=== PATIENT | male | born 1940 | race Caucasian/White ===

== ENCOUNTER 2019-07-27 17:42 | Inpatient (IN) | payer MEDICARE, OTHER ==
[2019-07-27] MEDS ORDERED: Sodium Chloride 0.9% 10 ML Syringe FLUSH PRN (18:10)
--- NOTE | 2019-07-27 19:22 | CT ---
Head CT Technique: Multiple axial sections through the brain were obtained. Intravenous contrast was not utilized. Comparison: No prior intracranial imaging is available. Findings: Ventricles along with basal cisterns and sulci over the convexities are moderately prominent. Minimal diminished density is noted within the periventricular white matter which is compatible with small vessel ischemic demyelination change. No other abnormal parenchymal densities are otherwise seen. No midline shift or mass effect is seen. No intracranial hemorrhage is identified. Bone window settings were reviewed. No acute paranasal sinus finding is seen within the visualized sinuses. Visualized mastoid sinuses show nothing acute. No acute calvarial abnormality is appreciated. Impression: 1. Senescent change as noted above. 2. No acute intracranial abnormality is identified. Diagnostic code #2 Study was dictated in [place] Standard Time
--- NOTE | 2019-07-27 19:50 | EDM.PDOC ---
ED HPI GENERAL MEDICAL PROBLEM - General Chief Complaint: Cardiovascular Problem Stated Complaint: WEAKNESS Time Seen by Provider: 07/27/19 18:01 Source of Information: Reports: Patient, Family History Limitations: Reports: No Limitations - History of Present Illness INITIAL COMMENTS - FREE TEXT/NARRATIVE: The patient presents with generalized weakness and confusion. He was diagnosed with Alzheimer's in November. He has been more weak over the past couple weeks. Today was much worse. He sat down and could not get up. He has no headache, chest pain, fever, chills, cough, shortness of breath, abdominal pain, nausea or vomiting. He has no dysuria. He has been eating and drinking okay. He has no numbness. He has been a little more confused lately. 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 He has not had any stents since then. He has a history of hypertension. He does not smoke. Onset: Gradual Duration: Week(s): Severity: Moderate Improves with: Reports: None Worsens with: Reports: None Associated Symptoms: Reports: No Other Symptoms - Related Data Allergies Allergy/AdvReac Type Severity Reaction Status Date / Time No Known Allergies Allergy Verified 07/27/19 17:57 Home Meds: Home Meds Atenolol [Tenormin] 50 mg PO BEDTIME 07/27/19 [History] Insulin Degludec [Tresiba] 30 unit SQ DAILY 07/27/19 [History] Lisinopril [Zestril] 40 mg PO DAILY 07/27/19 [History] Sertraline [Zoloft] 50 mg PO DAILY 07/27/19 [History] atorvaSTATin [Lipitor] 20 mg PO BEDTIME 07/27/19 [History] glipiZIDE [Glucotrol] 5 mg PO BID 07/27/19 [History] hydroCHLOROthiazide [Hydrochlorothiazide] 25 mg PO DAILY 07/27/19 [History] metFORMIN HCl [Glucophage] 1,000 mg PO BID 07/27/19 [History] Past Medical History Cardiovascular History: Reports: Bypass, Hypertension Gastrointestinal History: Reports: GERD Genitourinary History: Reports: Renal Calculus Neurological History: Reports: Alzheimers Disease Psychiatric History: Reports: Dementia Endocrine/Metabolic History: Reports: Diabetes, Type II Dermatologic History: Reports: Urticaria - Past Surgical History Other Musculoskeletal Surgeries/Procedures:: back sx for herniated disc Social & Family History - Family History Family Medical History: Noncontributory - Tobacco Use Smoking Status *Q: Never Smoker Second Hand Smoke Exposure: No - Caffeine Use Caffeine Use: Reports: Coffee - Recreational Drug Use Recreational Drug Use: No ED ROS GENERAL - Review of Systems Review Of Systems: See Below Constitutional: Reports: Weakness HEENT: Reports: No Symptoms Respiratory: Reports: No Symptoms Cardiovascular: Reports: No Symptoms Endocrine: Reports: No Symptoms GI/Abdominal: Reports: No Symptoms : Reports: No Symptoms Musculoskeletal: Reports: No Symptoms Skin: Reports: No Symptoms Neurological: Reports: Weakness ED EXAM, GENERAL - Physical Exam Exam: See Below Exam Limited By: No Limitations General Appearance: Alert, No Apparent Distress Ears: Normal External Exam Nose: Normal Inspection Head: Atraumatic, Normocephalic Neck: Normal Inspection, Supple, Non-Tender Respiratory/Chest: No Respiratory Distress, Lungs Clear, Normal Breath Sounds Cardiovascular: Regular Rate, Rhythm, No Edema, No Murmur GI/Abdominal: Soft, Non-Tender, No Organomegaly, No Mass Back Exam: Normal Inspection Extremities: Normal Inspection Neurological: Alert, Oriented, No Motor/Sensory Deficits EKG INTERPRETATION EKG Date: 07/27/19 Time: 17:56 Rhythm: NSR Rate (Beats/Min): 64 [place]: Normal P-Wave: Present QRS: Normal ST-T: Depressed (ST depression globaly) QT: Normal ND/PQ Interval: 2nd degree AV block, Mobitz II Course - Vital Signs Last Recorded V/S: Last Vital Signs Temp 97.4 F 07/27/19 17:52 Pulse 64 07/27/19 17:52 Resp 20 07/27/19 17:52 BP 143/111 H 07/27/19 17:52 Pulse Ox 94 L 07/27/19 17:52 - Orders/Labs/Meds Orders: Active Orders 24 hr Category Date Time Status Cardiac Monitoring [RC] . DIRECTED Care 07/27/19 18:10 Active EKG Documentation Completion [RC] STAT Care 07/27/19 18:11 Active Peripheral IV Care [RC] . DIRECTED Care 07/27/19 18:11 Active Chest 1V Frontal [CR] Stat Exams 07/27/19 18:11 Taken CALCIUM, IONIZED, SERUM [REF] Stat Lab 07/27/19 20:36 Ordered MAGNESIUM [CHEM] Stat Lab 07/27/19 20:37 Ordered UA W/MICROSCOPIC [URIN] Stat Lab 07/27/19 18:10 Ordered Sodium Chloride 0.9% [Saline Flush] Med 07/27/19 18:10 Active 10 ml FLUSH ASDIRECTED PRN Peripheral IV Insertion Adult [OM.PC] Stat Oth 07/27/19 18:10 Ordered Medication Orders Sodium Chloride (Saline Flush) 10 ml FLUSH ASDIRECTED PRN PRN Reason: Keep Vein Open Last Admin: 07/27/19 18:19 Dose: 10 ml Labs: Laboratory Tests 07/27/19 07/27/19 07/27/19 Range/Units 18:24 18:24 18:24 WBC 5.11 (4.23-9.07) K/mm3 RBC 4.27 L (4.63-6.08) M/mm3 Hgb 12.7 L (13.7-17.5) gm/dl Hct 38.7 L (40.1-51.0) % MCV 90.6 (79.0-92.2) fl MCH 29.7 (25.7-32.2) pg MCHC 32.8 (32.2-35.5) g/dl RDW Std Deviation 41.4 (35.1-43.9) fL Plt Count 159 L (163-337) K/mm3 MPV 9.4 (9.4-12.3) fl Neut % (Auto) 57.8 (34.0-67.9) % Lymph % (Auto) 22.9 (21.8-53.1) % Long % (Auto) 11.5 (5.3-12.2) % Eos % (Auto) 7.4 H (0.8-7.0) Baso % (Auto) 0.4 (0.1-1.2) % Neut # (Auto) 2.95 (1.78-5.38) K/mm3 Lymph # (Auto) 1.17 L (1.32-3.57) K/mm3 Long # (Auto) 0.59 (0.30-0.82) K/mm3 Eos # (Auto) 0.38 (0.04-0.54) K/mm3 Baso # (Auto) 0.02 (0.01-0.08) K/mm3 ESR 14 (0-15) mm/hr Sodium 142 (136-145) mEq/L Potassium 3.7 (3.5-5.1) mEq/L Chloride 103 (98-107) mEq/L Carbon Dioxide 29 (21-32) mEq/L Anion Gap 13.7 (5-15) BUN 17 (7-18) mg/dL Creatinine 1.1 (0.7-1.3) mg/dL Est Cr Clr Drug Dosing 59.77 mL/min Estimated GFR (MDRD) > 60 (>60) mL/min BUN/Creatinine Ratio 15.5 (14-18) Glucose 240 H (83-115) mg/dL Calcium 8.9 (8.5-10.1) mg/dL Total Bilirubin 0.5 (0.2-1.0) mg/dL AST 17 (15-37) U/L ALT 25 (16-63) U/L Alkaline Phosphatase 93 (46-116) U/L Troponin I 0.019 (0.00-0.056) ng/mL C-Reactive Protein 0.5 (<1.0) mg/dL Total Protein 6.3 L (6.4-8.2) g/dl Albumin 3.3 L (3.4-5.0) g/dl Globulin 3.0 gm/dL Albumin/Globulin Ratio 1.1 (1-2) Meds: Medications Generic Name Dose Route Start Last Admin Trade Name Freq PRN Reason Stop Dose Admin Sodium Chloride 10 ml 07/27/19 18:10 07/27/19 18:19 Saline Flush FLUSH 10 ml ASDIRECTED PRN Administration Keep Vein Open Discontinued Medications Generic Name Dose Route Start Last Admin Trade Name Freq PRN Reason Stop Dose Admin Hydralazine HCl 10 mg 07/27/19 20:17 07/27/19 20:25 Apresoline IVPUSH 07/27/19 20:18 10 mg ONETIME ONE Administration Labetalol HCl 20 mg 07/27/19 20:10 Normodyne IVPUSH 07/27/19 20:11 ONETIME ONE Protocol - Re-Assessments/Exams Free Text/Narrative Re-Assessment/Exam: 07/27/19 19:53 I ordered an IV saline lock, EKG, CXR, CT of his head and labs. His EKG shows a second degree HB type II. His CXR shows cardiomegaly. His CT shows senescent change as noted above. No acute intracranial abnormality is identified. His CBC looks good. his glucose is 240. His troponin is negative. His CRP is negative. 07/27/19 20:26 Catia sent an EKG and it shows the ST depression and 1st degree HB but not the second degree HB. I called Dr Boyle and she recommends I talk with cardiology. I have called [facility] in [place]. 07/27/19 20:[address] De La Rosa and he would take the patient there to assess for possible pacemaker but they do not have beds. They asked if we could admit here and transfer in the morning. Dr Boyle was okay with keeping him tonight. Departure - Departure Time of Disposition: 20:40 Disposition: Admitted As Inpatient 65 Condition: Fair Clinical Impression: Second degree AV block, Mobitz type II, Generalized weakness, Confusion Hypertension Qualifiers: Hypertension type: essential hypertension Qualified Code(s): I10 - Essential ( primary) hypertension Referrals: PCP,None [Primary Care Provider] - Forms: ED Department Discharge Sepsis Event Note - Evaluation Sepsis Screening Result: No Definite Risk - Focused Exam Vital Signs: Vital Signs Temp Pulse Resp BP Pulse Ox 07/27/19 17:52 97.4 F 64 20 143/111 H 94 L Date Exam was Performed: 07/27/19 Time Exam was Performed: 20:37 - My Orders Last 24 Hours: My Active Orders 07/27/19 18:10 Cardiac Monitoring [RC] . DIRECTED UA W/MICROSCOPIC [URIN] Stat Sodium Chloride 0.9% [Saline Flush] 10 ml FLUSH ASDIRECTED PRN Peripheral IV Insertion Adult [OM.PC] Stat 07/27/19 18:11 EKG Documentation Completion [RC] STAT Peripheral IV Care [RC] . DIRECTED Chest 1V Frontal [CR] Stat 07/27/19 20:36 CALCIUM, IONIZED, SERUM [REF] Stat 07/27/19 20:37 MAGNESIUM [CHEM] Stat - Assessment/Plan Last 24 Hours: My Active Orders 07/27/19 18:10 Cardiac Monitoring [RC] . DIRECTED UA W/MICROSCOPIC [URIN] Stat Sodium Chloride 0.9% [Saline Flush] 10 ml FLUSH ASDIRECTED PRN Peripheral IV Insertion Adult [OM.PC] Stat 07/27/19 18:11 EKG Documentation Completion [RC] STAT Peripheral IV Care [RC] . DIRECTED Chest 1V Frontal [CR] Stat 07/27/19 20:36 CALCIUM, IONIZED, SERUM [REF] Stat 07/27/19 20:37 MAGNESIUM [CHEM] Stat
[2019-07-27] MEDS ORDERED: Labetalol 100 MG/20 ML MDV IVPUSH ONE (20:10)
[2019-07-27] MEDS ORDERED: hydrALAZINE 20 MG/ML SDV IVPUSH ONE (20:17)
[2019-07-27] MEDS ORDERED: Atropine 0.1 MG/ML 10 ML Syringe IVPUSH PRN (23:31)
--- NOTE | 2019-07-28 07:43 | CR ---
Chest: Portable view of the chest was obtained. Comparison: No prior chest imaging. Heart size and mediastinum are within normal limits. Previous sternotomy is noted. Lungs are clear with no acute parenchymal change. Healing rib fracture felt to be present within the posterior left 7th rib. Impression: 1. Healing rib fracture within the posterior left 7th rib. 2. Nothing acute is otherwise seen on portable chest x-ray. Diagnostic code #2 This report was dictated in [place] Standard Time
[2019-07-28] MEDS ORDERED: hydrALAZINE 20 MG/ML SDV IVPUSH ONE (08:15)
[2019-07-28] MEDS ORDERED: hydrALAZINE 20 MG/ML SDV IVPUSH PRN (08:36)
[2019-07-28] MEDS ORDERED: Hydrochlorothiazide 25 MG Tab PO SCH (09:00)
[2019-07-28] MEDS ORDERED: Lisinopril 20 MG Tab PO SCH (09:00)
[2019-07-28] MEDS ORDERED: Sertraline 50 MG Tab PO SCH (09:00)
[2019-07-28] MEDS ORDERED: Magnesium Sulfate/Water 2 GM in Premix Bag 1 BAG IV STA (09:00)
--- NOTE | 2019-07-28 09:22 | PCM.HP.2 ---
H&P History of Present Illness - General Date of Service: 07/28/19 Admit Problem/Dx: Admission Diagnosis/Problem Admission Diagnosis/Problem Bradycardia - History of Present Illness Initial Comments - Free Text/Narative: This is a 78-year old male with past medical history of poorly controlled hypertension, diabetes and recently diagnosed Alzheimer's who is brought to the ED by for worsening confusion and weakness. As per patient's patient has been having increasing weakness to the point that yesterday he was unable to get up from a sitting position for which she decided to bring him in. During this time he continued to eat ok, no complaints of any other symptoms by patient as per . - Related Data Allergies/Adverse Reactions: Allergies Allergy/AdvReac Type Severity Reaction Status Date / Time No Known Allergies Allergy Verified 07/27/19 17:57 Home Medications: Home Meds Atenolol [Tenormin] 50 mg PO BEDTIME 07/27/19 [History] Insulin Degludec [Tresiba] 30 unit SQ DAILY 07/27/19 [History] Lisinopril [Zestril] 40 mg PO DAILY 07/27/19 [History] Sertraline [Zoloft] 50 mg PO DAILY 07/27/19 [History] atorvaSTATin [Lipitor] 20 mg PO BEDTIME 07/27/19 [History] glipiZIDE [Glucotrol] 5 mg PO BID 07/27/19 [History] hydroCHLOROthiazide [Hydrochlorothiazide] 25 mg PO DAILY 07/27/19 [History] metFORMIN HCl [Glucophage] 1,000 mg PO BID 07/27/19 [History] Past Medical History Cardiovascular History: Reports: Bypass, Hypertension Other Cardiovascular History: x3 1982 Gastrointestinal History: Reports: GERD Genitourinary History: Reports: Renal Calculus Neurological History: Reports: Alzheimers Disease Psychiatric History: Reports: Dementia Endocrine/Metabolic History: Reports: Diabetes, Type II Dermatologic History: Reports: Urticaria - Past Surgical History Other Musculoskeletal Surgeries/Procedures:: back sx for herniated disc Social & Family History - Family History Family Medical History: Noncontributory - Tobacco Use Smoking Status *Q: Former Smoker Used Tobacco, but Quit: Yes Month/Year Tobacco Last Used: 1999 Second Hand Smoke Exposure: No - Caffeine Use Caffeine Use: Reports: Coffee - Recreational Drug Use Recreational Drug Use: No H&P Review of Systems - Review of Systems: Review Of Systems: Unable To Obtain Reason Not Obtained: patient has altered mental status Exam - Exam Exam: See Below - Vital Signs Vital Signs: Last Vital Signs Temp 97.7 F 07/28/19 08:00 Pulse 64 07/27/19 17:52 Resp 24 H 07/28/19 08:00 BP 165/80 H 07/28/19 08:58 Pulse Ox 97 07/28/19 08:00 Weight: 111.039 kg - Exam General: Alert, Cooperative, Other (following one step commands). No: Oriented , Mild Distress HEENT: Conjunctiva Clear, Mucosa Moist & [place] Neck: Supple, +2 Carotid Pulse wo Bruit. No: Lymphadenopathy Lungs: Clear to Auscultation, Normal Respiratory Effort. No: Crackles, Rales, Rhonchi, Wheezing Cardiovascular: Regular Rate, Regular Rhythm. No: Systolic Murmur, Diastolic Murmur, Rubs, Gallop/S3, Gallop/S4 GI/Abdominal Exam: Normal Bowel Sounds, Soft, Non-Tender. No: Distended, Guarding, Rigid, Rebound Back Exam: Normal Inspection Extremities: Normal Inspection, Normal Range of Motion, Non-Tender, No Pedal Edema Neuro Extensive - Mental Status: Disorientation to Place, Disorientation to Time Psychiatric: Alert - Patient Data Result Diagrams: 07/27/19 18:24 07/27/19 18:24 Sepsis Event Note - Evaluation Sepsis Screening Result: No Definite Risk - Focused Exam Vital Signs: Vital Signs Temp Resp BP BP Pulse Ox 07/28/19 08:58 165/80 H 07/28/19 08:00 97.7 F 24 H 181/119 H 97 07/28/19 04:00 98.6 F 18 176/87 H 99 07/28/19 00:00 98.2 F 20 169/63 H 97 07/27/19 22:00 98.4 F 18 176/84 H 99 Date Exam was Performed: 07/28/19 Time Exam was Performed: 09:31 - Problem List (1) Second degree AV block, Mobitz type II SNOMED Code(s): 25190407 ICD Code: I44.1 - ATRIOVENTRICULAR BLOCK, SECOND DEGREE Status: Acute Current Visit: No (2) Generalized weakness SNOMED Code(s): 45679447 ICD Code: R53.1 - WEAKNESS Status: Acute Current Visit: No (3) Confusion SNOMED Code(s): 815971756 ICD Code: R41.0 - DISORIENTATION, UNSPECIFIED Status: Acute Current Visit : No (4) Hypomagnesemia SNOMED Code(s): 128926745 ICD Code: E83.42 - HYPOMAGNESEMIA Status: Acute Current Visit: Yes (5) Diabetes mellitus SNOMED Code(s): 18460286 ICD Code: E11.9 - TYPE 2 DIABETES MELLITUS WITHOUT COMPLICATIONS Status: Acute Current Visit: Yes (6) Hypertension SNOMED Code(s): 52310254 ICD Code: I10 - ESSENTIAL (PRIMARY) HYPERTENSION Status: Acute Current Visit: No Qualifiers: Hypertension type: essential hypertension Qualified Code(s): I10 - Essential (primary) hypertension (7) Alzheimer disease SNOMED Code(s): 33221684 ICD Code: G30.9 - ALZHEIMER'S DISEASE, UNSPECIFIED; F02.80 - DEMENTIA IN OTH DISEASES CLASSD ELSWHR W/O BEHAVRL DISTURB Status: Acute Current Visit: Yes Problem List Initiated/Reviewed/Updated: Yes Assessment/Plan Comment:: Second degree AV block, Mobitz type II HR 64 on admission Trended down to 50 in ED EKG on admission with new onset Mobitz type II PLAN - Admitted due to poor bed availability in [place] - Bed available today - Transfer to [place] with cardiac monitoring en route for EP study Diabetes mellitus, unknown HbA1c Glucose on admission 260 Home management with glipizide, metformin and degludec PLAN - Accuchecks TID AC and HS - Hypoglycemia protocol Hypertension BP on admission 143/111 Continued to trend upwards overnight Suboptimal response to hydralazine Home management with hydrochlorothiazide, lisinopril and atenolol PLAN - PRN hydralazine - Continue to hold atenolol due to block CODE STATUS: FULL CODE PROPHYLAXIS DVT- SCDs GI- not indicated DISPOSITION: Patient evaluated in ED with consult to cardiology in [place], no available bed so hand spray operator requested overnight admission for bed availability. Transfer today. - Mortality Measure Prognosis:: Good
--- NOTE | 2019-07-28 09:40 | PCM.DCSUM1 ---
Discharge Summary - Hospital Course HPI Initial Comments: This is a 78-year old male with past medical history of poorly controlled hypertension, diabetes and recently diagnosed Alzheimer's who is brought to the ED by for worsening confusion and weakness. As per patient's patient has been having increasing weakness to the point that yesterday he was unable to get up from a sitting position for which she decided to bring him in. During this time he continued to eat ok, no complaints of any other symptoms by patient as per . Diagnosis: Stroke: No - Discharge Data Discharge Date: 07/28/19 Discharge Disposition: DC/Tfer to Acute Hospital 02 Condition: Good - Referral to Home Health Primary Care Physician: PCP None - Discharge Diagnosis/Problem(s) (1) Second degree AV block, Mobitz type II SNOMED Code(s): 26012656 ICD Code: I44.1 - ATRIOVENTRICULAR BLOCK, SECOND DEGREE Status: Acute Current Visit: No (2) Generalized weakness SNOMED Code(s): 86603479 ICD Code: R53.1 - WEAKNESS Status: Acute Current Visit: No (3) Confusion SNOMED Code(s): 087144511 ICD Code: R41.0 - DISORIENTATION, UNSPECIFIED Status: Acute Current Visit : No (4) Hypomagnesemia SNOMED Code(s): 409619520 ICD Code: E83.42 - HYPOMAGNESEMIA Status: Acute Current Visit: Yes (5) Diabetes mellitus SNOMED Code(s): 65283819 ICD Code: E11.9 - TYPE 2 DIABETES MELLITUS WITHOUT COMPLICATIONS Status: Acute Current Visit: Yes (6) Hypertension SNOMED Code(s): 61190802 ICD Code: I10 - ESSENTIAL (PRIMARY) HYPERTENSION Status: Acute Current Visit: No Qualifiers: Hypertension type: essential hypertension Qualified Code(s): I10 - Essential (primary) hypertension (7) Alzheimer disease SNOMED Code(s): 64663738 ICD Code: G30.9 - ALZHEIMER'S DISEASE, UNSPECIFIED; F02.80 - DEMENTIA IN OTH DISEASES CLASSD ELSWHR W/O BEHAVRL DISTURB Status: Acute Current Visit: Yes - Patient Summary/Data Hospital Course: Admitted overnight pending bed availability Transferred out this morning once bed available - Discharge Plan Home Medications: Home Meds Atenolol [Tenormin] 50 mg PO BEDTIME 07/27/19 [History] Insulin Degludec [Tresiba] 30 unit SQ DAILY 07/27/19 [History] Lisinopril [Zestril] 40 mg PO DAILY 07/27/19 [History] Sertraline [Zoloft] 50 mg PO DAILY 07/27/19 [History] atorvaSTATin [Lipitor] 20 mg PO BEDTIME 07/27/19 [History] glipiZIDE [Glucotrol] 5 mg PO BID 07/27/19 [History] hydroCHLOROthiazide [Hydrochlorothiazide] 25 mg PO DAILY 07/27/19 [History] metFORMIN HCl [Glucophage] 1,000 mg PO BID 07/27/19 [History] Patient Handouts: Second-Degree Atrioventricular Block Forms: ED Department Discharge Referrals: PCP,None [Primary Care Provider] - - Discharge Summary/Plan Comment DC Time >30 min.: Yes - General Info Date of Service: 07/28/19 Subjective Update: No complaints overnight Patient slept so so Ate ok - Patient Data Vitals - Most Recent: Last Vital Signs Temp 97.7 F 07/28/19 08:00 Pulse 64 07/27/19 17:52 Resp 24 H 07/28/19 08:00 BP 165/80 H 07/28/19 09:19 Pulse Ox 97 07/28/19 08:00 Weight - Most Recent: 111.039 kg - Exam Physical Findings Comments:: General: Alert, Cooperative, Other (following one step commands). No: Oriented , Mild Distress HEENT: Conjunctiva Clear, Mucosa Moist & [place] Neck: Supple, +2 Carotid Pulse wo Bruit. No: Lymphadenopathy Lungs: Clear to Auscultation, Normal Respiratory Effort. No: Crackles, Rales, Rhonchi, Wheezing Cardiovascular: Regular Rate, Regular Rhythm. No: Systolic Murmur, Diastolic Murmur, Rubs, Gallop/S3, Gallop/S4 GI/Abdominal Exam: Normal Bowel Sounds, Soft, Non-Tender. No: Distended, Guarding, Rigid, Rebound Back Exam: Normal Inspection Extremities: Normal Inspection, Normal Range of Motion, Non-Tender, No Pedal Edema Neuro Extensive - Mental Status: Disorientation to Place, Disorientation to Time Psychiatric: Alert
[2019-07-28] MEDS ORDERED: Atenolol 50 MG Tab PO SCH (21:00)
[2019-07-28] MEDS ORDERED: Simvastatin 20 MG Tab PO SCH (21:00)
== END 2019-07-28 10:20 | DRG 310 ==
LOC: JD.ED 17:42 → JD.ICU 21:03
PROVIDERS: ADMIT Internal Medicine; ATTEND Internal Medicine
DX: I44.1 Atrioventricular block, second degree (principal); E83.42 Hypomagnesemia; I10 Essential (primary) hypertension; R53.1 Weakness; Z95.5 Presence of coronary angioplasty implant and graft; I25.2 Old myocardial infarction; R41.0 Disorientation, unspecified; G30.9 Alzheimer's disease, unspecified; F02.80 Dementia in other diseases classified elsewhere, unspecified severity, without behavioral disturbance, psychotic disturbance, mood disturbance, and anxiety; E11.9 Type 2 diabetes mellitus without complications; K21.9 Gastro-esophageal reflux disease without esophagitis; Z79.4 Long term (current) use of insulin; Z79.899 Other long term (current) drug therapy; Z87.891 Personal history of nicotine dependence
CPT/HCPCS: 36415 ×2; 70450; 71045; 80053; 82330; 83735; 84484; 85025; 85652; 86140; 93005; 96374; 99285; J0360; 81001; 82962; 93010; 99222; A9270-GY; J3475

== ENCOUNTER 2019-09-23 10:06 | Inpatient (IN) | payer MEDICARE, OTHER ==
--- NOTE | 2019-09-23 10:43 | EDM.PDOC ---
ED HPI GENERAL MEDICAL PROBLEM - General Chief Complaint: General Stated Complaint: [facility] Time Seen by Provider: 09/23/19 10:15 - History of Present Illness INITIAL COMMENTS - FREE TEXT/NARRATIVE: 78-year-old male presents the emergency room brought in somewhat unresponsive from the longterm facility. This unfortunate male has a history of dementia early in July he was doing fine he was seen here on 27 July transferred to [place] with a high-grade heart block and had a pacemaker placed on 28 July. 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 Eventually this started to work the dose is down and the patient started to do better he was up and ambulatory with the aid of a walker and was transferred to [facility] around August 25. During his stay there he gradually declined. At an assisted living they did not feed him and he gradually became weaker and more tired and almost to a unresponsive state. He was transferred to longterm facility 3 days ago and his condition never improved. Apparently he had some lab work done about a week and a half ago I do not have access to that I was phoned by Dr. Wells this morning who was reviewing some blood work that showed a sodium of 161 this was rechecked and found to be 161 again. This could certainly explain his level of consciousness. Treatments FORMULA [employer]KER: Reports: IV/IO - Related Data Allergies Allergy/AdvReac Type Severity Reaction Status Date / Time No Known Allergies Allergy Verified 09/23/19 10:31 Home Meds: Home Meds Atenolol [Tenormin] 50 mg PO BEDTIME 07/27/19 [History] atorvaSTATin [Lipitor] 20 mg PO BEDTIME 07/27/19 [History] metFORMIN HCl [Glucophage] 1,000 mg PO BID 07/27/19 [History] Albuterol [Proventil HFA] 2 puff INH Q6HR PRN 09/23/19 [History] Budesonide/Formoterol Fumarate [Budesonide-Formoterol 160-4.5] 2 puff INH BID [History] Insulin Detemir [Levemir Flextouch] 26 units SQ DAILY 09/23/19 [History] Isosorbide Mononitrate [Isosorbide Mononitrate ER] 30 mg PO DAILY 09/23/19 [ History] Memantine [Namenda] 5 mg PO BID 09/23/19 [History] Tamsulosin [Flomax] 0.4 mg PO DAILY 09/23/19 [History] levETIRAcetam [Keppra] 500 mg PO BID 09/23/19 [History] Past Medical History HEENT History: Reports: Hard of Hearing, Impaired Vision Cardiovascular History: Reports: Bypass, Hypertension, Pacemaker Other Cardiovascular History: x3 1983 Gastrointestinal History: Reports: GERD Genitourinary History: Reports: Renal Calculus, Retention, Urinary Neurological History: Reports: Alzheimers Disease Psychiatric History: Reports: Dementia Endocrine/Metabolic History: Reports: Diabetes, Type II Dermatologic History: Reports: Urticaria - Past Surgical History Cardiovascular Surgical History: Reports: Pacer Other Musculoskeletal Surgeries/Procedures:: back sx for herniated disc Social & Family History - Family History Family Medical History: Noncontributory - Tobacco Use Smoking Status *Q: Unknown Ever Smoked - Caffeine Use Caffeine Use: Reports: Coffee ED ROS GENERAL - Review of Systems Review Of Systems: See Below Reason Not Obtained: Unable to be obtained because of his mental status ED EXAM, GENERAL - Physical Exam Exam: See Below Exam Limited By: Altered Mental Status (He is unresponsive to me or his ) General Appearance: Obtunded Eye Exam: Bilateral Eye: Other (Closed) Ears: Normal External Exam, Normal Canal, Hearing Grossly Normal, Normal TMs, Other (Both canals partially obstructed with cerumen) Nose: Normal Inspection, Normal Mucosa, No Blood Throat/Mouth: Normal Inspection, Normal Lips, Normal Gums, Normal Oropharynx, Normal Voice, No Airway Compromise, Other Head: Atraumatic, Normocephalic Neck: Other (He is facing towards the left and with trying to reposition his head it goes right back to the left) Respiratory/Chest: No Respiratory Distress, Lungs Clear, Normal Breath Sounds Cardiovascular: Regular Rate, Rhythm, No Edema, No Murmur, Other (Ventricular paced on the monitor) GI/Abdominal: Normal Bowel Sounds, Soft, Other (No apparent tenderness but this cannot be certain with his mental status) Neurological: Unresponsive Course - Vital Signs Last Recorded V/S: Last Vital Signs Temp 36.9 C 09/23/19 10:27 Pulse 73 09/23/19 10:27 Resp 16 09/23/19 10:27 BP 104/61 09/23/19 10:27 Pulse Ox 96 09/23/19 10:27 - Orders/Labs/Meds Orders: Active Orders 24 hr Category Date Time Status EKG Documentation Completion [RC] STAT Care 09/23/19 10:30 Active Gastrointestinal Tube Mgmt [RC] ASDIRECTED Care 09/23/19 12:22 Active BLOOD GAS ARTERIAL [BG] Stat Lab 09/23/19 12:17 Ordered CREATINE KINASE,CK [CHEM] Stat Lab 09/23/19 12:17 Ordered CULTURE BLOOD [BC] Stat Lab 09/23/19 12:11 Ordered CULTURE BLOOD [BC] Stat Lab 09/23/19 12:11 Ordered CULTURE URINE [RM] Stat Lab 09/23/19 11:24 Received LACTATE SEPSIS W/ REFLEX [CHEM] Stat Lab 09/23/19 12:11 Ordered POTASSIUM, URINE Stat Lab 09/23/19 11:24 Received Dextrose 5% in Water 1,000 ml Med 09/23/19 12:15 Active IV ASDIRECTED Blood Culture x2 Reflex Set [OM.PC] Stat Oth 09/23/19 12:11 Ordered NG [Nasogastric Orogastric Tube Insertion] [OM.PC] Oth 09/23/19 12:17 Ordered Routine Medication Orders Dextrose/Water (Dextrose 5% In Water) 1,000 mls @ 100 mls/hr IV ASDIRECTED [facility] Labs: Laboratory Tests 09/23/19 09/23/19 09/23/19 Range/Units 10:47 10:47 11:24 WBC 9.02 (4.23-9.07) K/mm3 RBC 4.39 L (4.63-6.08) M/mm3 Hgb 12.8 L (13.7-17.5) gm/dl Hct 41.8 (40.1-51.0) % MCV 95.2 H D (79.0-92.2) fl MCH 29.2 (25.7-32.2) pg MCHC 30.6 L (32.2-35.5) g/dl RDW Std Deviation 46.4 H (35.1-43.9) fL Plt Count 178 (163-337) K/mm3 MPV 9.9 (9.4-12.3) fl Neut % (Auto) 72.6 H (34.0-67.9) % Lymph % (Auto) 14.4 L (21.8-53.1) % [place] % (Auto) 8.3 (5.3-12.2) % Eos % (Auto) 4.0 (0.8-7.0) Baso % (Auto) 0.6 (0.1-1.2) % Neut # (Auto) 6.55 H (1.78-5.38) K/mm3 Lymph # (Auto) 1.30 L (1.32-3.57) K/mm3 [place] # (Auto) 0.75 (0.30-0.82) K/mm3 Eos # (Auto) 0.36 (0.04-0.54) K/mm3 Baso # (Auto) 0.05 (0.01-0.08) K/mm3 Manual Slide Review Not Reportable Sodium 159 H D (136-145) mEq/L Potassium 4.5 (3.5-5.1) mEq/L Chloride 124 H D (98-107) mEq/L Carbon Dioxide 22 (21-32) mEq/L Anion Gap 17.5 H (5-15) BUN 82 H D (7-18) mg/dL Creatinine 1.8 H (0.7-1.3) mg/dL Est Cr Clr Drug Dosing TNP Estimated GFR (MDRD) 37 (>60) mL/min BUN/Creatinine Ratio 45.6 H (14-18) Glucose 188 H (83-115) mg/dL Serum Osmolality 363 H (280-300) mosm/kg Calcium 9.1 (8.5-10.1) mg/dL Total Bilirubin 0.4 (0.2-1.0) mg/dL AST 36 (15-37) U/L ALT 35 (16-63) U/L Alkaline Phosphatase 108 (46-116) U/L Total Protein 6.5 (6.4-8.2) g/dl Albumin 2.6 L (3.4-5.0) g/dl Globulin 3.9 gm/dL Albumin/Globulin Ratio 0.7 L (1-2) Urine Color Yellow (Yellow) Urine Appearance Cloudy H (Clear) Urine pH 5.0 (5.0-8.0) Ur Specific [place] 1.025 (1.005-1.030) Urine Protein 2+ H (Negative) Urine Glucose (UA) Negative (Negative) Urine Ketones Negative (Negative) Urine Occult Blood 3+ H (Negative) Urine Nitrite Negative (Negative) Urine Bilirubin 1+ H (Negative) Urine Urobilinogen 1.0 (0.2-1.0) Ur Leukocyte Esterase 1+ H (Negative) Urine RBC 40-50 H (0-5) /hpf Urine WBC 20-30 H (0-5) /hpf Ur Squamous Epith Cells 0-5 (0-5) /hpf Amorphous Sediment Many H (NOT SEEN) /hpf Urine Bacteria Many H (FEW) /hpf Urine Mucus Not seen (FEW) /hpf Urine Osmolality (400-1100) mosm/kg Ur Random Sodium (40-220) mEq/L 09/23/19 Range/Units 11:24 WBC (4.23-9.07) K/mm3 RBC (4.63-6.08) M/mm3 Hgb (13.7-17.5) gm/dl Hct (40.1-51.0) % MCV (79.0-92.2) fl MCH (25.7-32.2) pg MCHC (32.2-35.5) g/dl RDW Std Deviation (35.1-43.9) fL Plt Count (163-337) K/mm3 MPV (9.4-12.3) fl Neut % (Auto) (34.0-67.9) % Lymph % (Auto) (21.8-53.1) % [place] % (Auto) (5.3-12.2) % Eos % (Auto) (0.8-7.0) Baso % (Auto) (0.1-1.2) % Neut # (Auto) (1.78-5.38) K/mm3 Lymph # (Auto) (1.32-3.57) K/mm3 [place] # (Auto) (0.30-0.82) K/mm3 Eos # (Auto) (0.04-0.54) K/mm3 Baso # (Auto) (0.01-0.08) K/mm3 Manual Slide Review Sodium (136-145) mEq/L Potassium (3.5-5.1) mEq/L Chloride (98-107) mEq/L Carbon Dioxide (21-32) mEq/L Anion Gap (5-15) BUN (7-18) mg/dL Creatinine (0.7-1.3) mg/dL Est Cr Clr Drug Dosing Estimated GFR (MDRD) (>60) mL/min BUN/Creatinine Ratio (14-18) Glucose (83-115) mg/dL Serum Osmolality (280-300) mosm/kg Calcium (8.5-10.1) mg/dL Total Bilirubin (0.2-1.0) mg/dL AST (15-37) U/L ALT (16-63) U/L Alkaline Phosphatase (46-116) U/L Total Protein (6.4-8.2) g/dl Albumin (3.4-5.0) g/dl Globulin gm/dL Albumin/Globulin Ratio (1-2) Urine Color (Yellow) Urine Appearance (Clear) Urine pH (5.0-8.0) Ur Specific [place] (1.005-1.030) Urine Protein (Negative) Urine Glucose (UA) (Negative) Urine Ketones (Negative) Urine Occult Blood (Negative) Urine Nitrite (Negative) Urine Bilirubin (Negative) Urine Urobilinogen (0.2-1.0) Ur Leukocyte Esterase (Negative) Urine RBC (0-5) /hpf Urine WBC (0-5) /hpf Ur Squamous Epith Cells (0-5) /hpf Amorphous Sediment (NOT SEEN) /hpf Urine Bacteria (FEW) /hpf Urine Mucus (FEW) /hpf Urine Osmolality 527 (400-1100) mosm/kg Ur Random Sodium 13 L (40-220) mEq/L Meds: Medications Generic Name Dose Route Start Last Admin Trade Name Freq PRN Reason Stop Dose Admin Dextrose/Water 1,000 mls @ 100 mls/hr 09/23/19 12:15 Dextrose 5% In Water IV ASDIRECTED KATHY - Re-Assessments/Exams Free Text/Narrative Re-Assessment/Exam: 09/23/19 10:52 I had a long discussion with the patient's who understands the patient's condition and is well aware that he may not survive this. His condition has been declining since he had the pacemaker put in. The patient is a DNR she would like us however to treat anything that is treatable. 09/23/19 12:24 Reviewed case discussed with Dr. Boyle who will assume care and admit. Departure - Departure Time of Disposition: 12:24 Disposition: Home, Self-Care 01 Clinical Impression: Hypernatremia, Dehydration, Urinary tract infection - Discharge Information Referrals: Stanislaw Maldonado MD [Primary Care Provider] - Forms: ED Department Discharge Sepsis Event Note - Evaluation Sepsis Screening Result: No Definite Risk - Focused Exam Vital Signs: Vital Signs Temp Pulse Resp BP Pulse Ox 09/23/19 10:27 36.9 C 73 16 104/61 96 Date Exam was Performed: 09/23/19 Time Exam was Performed: 12:24 - My Orders Last 24 Hours: My Active Orders 09/23/19 10:30 EKG Documentation Completion [RC] STAT 09/23/19 11:24 CULTURE URINE [RM] Stat POTASSIUM, URINE Stat 09/23/19 12:11 CULTURE BLOOD [BC] Stat CULTURE BLOOD [BC] Stat LACTATE SEPSIS W/ REFLEX [CHEM] Stat Blood Culture x2 Reflex Set [OM.PC] Stat 09/23/19 12:15 Dextrose 5% in Water 1,000 ml IV ASDIRECTED 09/23/19 12:17 BLOOD GAS ARTERIAL [BG] Stat CREATINE KINASE,CK [CHEM] Stat NG [Nasogastric Orogastric Tube Insertion] [OM.PC] Routine 09/23/19 12:22 Gastrointestinal Tube Mgmt [RC] ASDIRECTED - Assessment/Plan Last 24 Hours: My Active Orders 09/23/19 10:30 EKG Documentation Completion [RC] STAT 09/23/19 11:24 CULTURE URINE [RM] Stat POTASSIUM, URINE Stat 09/23/19 12:11 CULTURE BLOOD [BC] Stat CULTURE BLOOD [BC] Stat LACTATE SEPSIS W/ REFLEX [CHEM] Stat Blood Culture x2 Reflex Set [OM.PC] Stat 09/23/19 12:15 Dextrose 5% in Water 1,000 ml IV ASDIRECTED 09/23/19 12:17 BLOOD GAS ARTERIAL [BG] Stat CREATINE KINASE,CK [CHEM] Stat NG [Nasogastric Orogastric Tube Insertion] [OM.PC] Routine 09/23/19 12:22 Gastrointestinal Tube Mgmt [RC] ASDIRECTED
--- NOTE | 2019-09-23 11:35 | CT ---
Head CT Technique: Multiple axial sections through the brain were obtained. Intravenous contrast was not utilized. Comparison: Prior head CT study of 07/27/19. Findings: Ventricles along with basal cisterns and sulci over convexities are moderately prominent. Diminished density is noted within the periventricular white matter compatible with small vessel ischemic demyelination change. No evidence of intracranial hemorrhage. No midline shift or mass effect is appreciated. Bone window settings were reviewed. Visualized paranasal sinuses and mastoid sinuses show nothing acute. No acute calvarial abnormality is appreciated. Mild atherosclerotic calcification is seen within the carotid siphon. Impression: 1. Senescent change as noted above. 2. No acute abnormality is appreciated on noncontrast head CT study. Diagnostic code #2 Study was dictated in MDT
--- NOTE | 2019-09-23 11:54 | CR ---
Chest: Portable view of the chest was obtained. Comparison: Prior chest x-ray of 07/27/19. Nodular density is seen within the left mid to lower lung believed to represent callus around a rib fracture. Lungs show no acute parenchymal change. Heart size and mediastinum are normal. Previous sternotomy is noted for CABG. Pacemaker is seen. Impression: 1. Findings as noted above. 2. Nothing acute is seen. Diagnostic code #2 Study was dictated in MDT
[2019-09-23] MEDS ORDERED: Dextrose 5% in Water 1,000 ML IV SCH (12:15)
[2019-09-23] MEDS ORDERED: Ondansetron 4 MG/2 ML SDV IV PRN (12:52)
[2019-09-23] MEDS ORDERED: Dextrose 5%-0.45% NaCl 1,000 ML IV SCH (13:00)
--- NOTE | 2019-09-23 13:08 | PCM.HP.2 ---
H&P History of Present Illness - General Date of Service: 09/23/19 Admit Problem/Dx: Admission Diagnosis/Problem Admission Diagnosis/Problem Hypernatremia - History of Present Illness Initial Comments - Free Text/Narative: Information obtained by chart review and verbal reports by staff due to altered mental status. Patient was discharged from [facility] after being transferred from here for Mobitz type II heart block for placement of pacemaker. He was there for about a month. Discharged to [facility] about 3.5 weeks ago and transferred to [facility] a couple of days ago. Nursing reports patient's states he has been having altered mental status since discharge from [place] with worsening decreased responsiveness, associated with minimal oral intake. Labs scheduled for today and found to have Na in 160s for which he was transferred here. - Related Data Allergies/Adverse Reactions: Allergies Allergy/AdvReac Type Severity Reaction Status Date / Time No Known Allergies Allergy Verified 09/23/19 16:16 Home Medications: Home Meds Atenolol [Tenormin] 50 mg PO DAILY 07/27/19 [History] atorvaSTATin [Lipitor] 20 mg PO QPM 07/27/19 [History] metFORMIN HCl [Glucophage] 1,000 mg PO BID 07/27/19 [History] Albuterol [Proventil HFA] 2 puff INH Q6HR PRN 09/23/19 [History] Budesonide/Formoterol Fumarate [Budesonide-Formoterol 160-4.5] 2 puff INH BID [History] Insulin Detemir [Levemir Flextouch] 26 units SQ DAILY 09/23/19 [History] Isosorbide Mononitrate [Isosorbide Mononitrate ER] 30 mg PO DAILY 09/23/19 [ History] Memantine [Namenda] 5 mg PO BID 09/23/19 [History] Tamsulosin [Flomax] 0.4 mg PO BEDTIME 09/23/19 [History] levETIRAcetam [Keppra] 500 mg PO BID 09/23/19 [History] Past Medical History HEENT History: Reports: Hard of Hearing, Impaired Vision Cardiovascular History: Reports: Bypass, Hypertension, Pacemaker Other Cardiovascular History: x3 1982 Gastrointestinal History: Reports: GERD Genitourinary History: Reports: Renal Calculus, Retention, Urinary Neurological History: Reports: Alzheimers Disease Psychiatric History: Reports: Dementia Endocrine/Metabolic History: Reports: Diabetes, Type II Dermatologic History: Reports: Urticaria - Past Surgical History Cardiovascular Surgical History: Reports: Pacer Other Musculoskeletal Surgeries/Procedures:: back sx for herniated disc Social & Family History - Family History Family Medical History: Noncontributory - Tobacco Use Smoking Status *Q: Unknown Ever Smoked - Caffeine Use Caffeine Use: Reports: Coffee H&P Review of Systems - Review of Systems: Review Of Systems: Unable To Obtain Reason Not Obtained: Patient grimaces and complains to pain Exam - Exam Exam: See Below - Vital Signs Vital Signs: Last Vital Signs Temp 98.5 F 09/23/19 10:27 Pulse 73 09/23/19 10:27 Resp 16 09/23/19 10:27 BP 104/61 09/23/19 10:27 Pulse Ox 96 09/23/19 10:27 Weight: 102.058 kg - Exam Quality Assessment: Skin Breakdown, Other (patient not cooperating to take deep breaths, ). No: Supplemental Oxygen, Central Line/PICC, Urinary Catheter, DVT Prophylaxis General: Obtunded (minimally arousable, grimacing and says ouch ) HEENT: Conjunctiva Clear, Pupils Reactive, Other (yellowish flakes on eyelids with some erythema) Neck: Supple. No: Lymphadenopathy Lungs: Decreased Breath Sounds (not cooperating to take deep breath, unable to r /o pathologic sounds) Cardiovascular: Regular Rate, Regular Rhythm. No: Systolic Murmur, Diastolic Murmur, Gallop/S3, Gallop/S4 GI/Abdominal Exam: Normal Bowel Sounds. No: No Organomegaly, Distended Back Exam: Other (epidermal sloughing on sacrum and medial upper quadrants of both buttocks) Extremities: Other (some erythematous lesions, possible old traumas with scabs, no active bleeding). No: Pedal Edema Skin: Dry, Other (tenting) Neuro Extensive - Mental Status: Other (does not follow commands, did open eyes upon request once, grimacing and says ouch with sternal rub). No: Alert - Patient Data Result Diagrams: 09/23/19 10:47 09/23/19 19:37 Sepsis Event Note - Evaluation Sepsis Screening Result: No Definite Risk - Focused Exam Vital Signs: Vital Signs Temp Pulse Resp BP Pulse Ox 09/23/19 10:27 98.5 F 73 16 104/61 96 Date Exam was Performed: 09/23/19 Time Exam was Performed: 22:21 - Problem List (1) Hyperosmolality with hypernatremia SNOMED Code(s): 604387958 ICD Code: E87.0 - HYPEROSMOLALITY AND HYPERNATREMIA Status: Acute Current Visit: Yes (2) Volume depletion SNOMED Code(s): 410842476 ICD Code: E86.9 - VOLUME DEPLETION, UNSPECIFIED Status: Acute Current Visit: Yes (3) Pacemaker SNOMED Code(s): 426478098 ICD Code: Z95.0 - PRESENCE OF CARDIAC PACEMAKER Status: Acute Current Visit: Yes (4) Hyperchloremia SNOMED Code(s): 72646864 ICD Code: E87.8 - OT DISORDERS OF ELECTROLYTE AND FLUID BALANCE, NEC Status: Acute Current Visit: Yes (5) Hematuria SNOMED Code(s): 89414430 ICD Code: R31.9 - HEMATURIA, UNSPECIFIED Status: Acute Current Visit: Yes (6) Hypoalbuminemia SNOMED Code(s): 326784360 ICD Code: E88.09 - OTH DISORDERS OF PLASMA-PROTEIN METABOLISM, NEC Status: Acute Current Visit: Yes (7) Alzheimer disease SNOMED Code(s): 26901727 ICD Code: G30.9 - ALZHEIMER'S DISEASE, UNSPECIFIED; F02.80 - DEMENTIA IN OT DISEASES CLASSD ELSWHR W/O BEHAVRL DISTURB Status: Acute Current Visit: No (8) Diabetes mellitus SNOMED Code(s): 85884360 ICD Code: E11.9 - TYPE 2 DIABETES MELLITUS WITHOUT COMPLICATIONS Status: Acute Current Visit: No (9) Hypertension SNOMED Code(s): 42905133 ICD Code: I10 - ESSENTIAL (PRIMARY) HYPERTENSION Status: Acute Current Visit: No Qualifiers: Hypertension type: essential hypertension Qualified Code(s): I10 - Essential (primary) hypertension (10) Second degree AV block, Mobitz type II SNOMED Code(s): 45202378 ICD Code: I44.1 - ATRIOVENTRICULAR BLOCK, SECOND DEGREE Status: Acute Current Visit: No (11) Acute on chronic alteration in mental status SNOMED Code(s): 337055378 ICD Code: R41.82 - ALTERED MENTAL STATUS, UNSPECIFIED Status: Acute Current Visit: Yes (12) COPD (chronic obstructive pulmonary disease) SNOMED Code(s): 46513875 ICD Code: J44.9 - CHRONIC OBSTRUCTIVE PULMONARY DISEASE, UNSPECIFIED Status : Acute Current Visit: Yes (13) senior care resident SNOMED Code(s): 064839038 ICD Code: Z59.3 - PROBLEMS RELATED TO LIVING IN RESIDENTIAL INSTITUTION Status: Acute Current Visit: Yes (14) Malnutrition SNOMED Code(s): 06301439 ICD Code: E46 - UNSPECIFIED PROTEIN-CALORIE MALNUTRITION Status: Acute Current Visit: Yes (15) Stage II decubitus ulcer SNOMED Code(s): 248494311 ICD Code: L89.92 - PRESSURE ULCER OF UNSPECIFIED SITE, STAGE 2 Status: Acute Current Visit: Yes Problem List Initiated/Reviewed/Updated: Yes Assessment/Plan Comment:: ASSESSMENT Day of Admission - Diagnosed with Alzheimer's in the past 6 months with recent lengthy admission --> discharged to [facility] where he stayed for 3 weeks--> Transferred to [facility] due to requiring higher level of care - Steadily declining mental status with decreased oral intake and decreased responsiveness--> labs as an outpatient with Na in 160s--> transferred to ED - Mental status decline multifactorial from natural disease progression and acute hospital admission associated delirium as well as volume depletion and hypernatremia - Na on admission 159 with water deficit of 6,098mL and obvious volume depletion signs on physical exam - No recent medication changes - VS on admission stable - GFR 37, previous admission GFR normal - Holliday catheter in place since admission to [place], verbally reported by to nursing 2/2 urinary retention--> pathologic UA on admission PLAN BY PROBLEM Worsening altered mental status in the setting of Alzheimer's disease Hyperosmolality with hypernatremia Hyperchloremia Volume depletion Acute kidney injury - D51/2NS bolus 1L - D51/2 NS at 150ml/hr - Labs every 4 hours - NG tube insertion - Free water flushed every 6 hours, 250mL Second degree AV block, Mobitz type II Pacemaker - Interrogate pacemaker Diabetes mellitus, unknown HbA1c - NPO - Accuchescks q6h - Hold metformin and insulin Hypertension - Hold meds - PRN hydralazine COPD (chronic obstructive pulmonary disease) - Hold inhaler - Restart once mental status improved Macrocytic anemia Alzheimer disease senior care resident Malnutrition Hypoalbuminemia - Nutrition consult - Let me sleep protocol PROPHYLAXIS DVT- compression stockings GI- not indicated CODE STATUS: DNR/DNI DISPOSITION: Patient will be admitted for IV and PO correction of hyponatremia under monitorization. PT/OT consult once appropriate as well as CM and SW for discharge planning. - Mortality Measure Prognosis:: Poor
[2019-09-23] MEDS ORDERED: Dextrose 5%-0.45% NaCl 1,000 ML ONE (13:11)
--- NOTE | 2019-09-23 14:06 | CR ---
Chest: Portable view of the chest was obtained. Comparison: Prior chest x-ray of 09/23/19. Heart size and mediastinum are normal. Healing rib fracture is noted on the left side. Lungs show no acute parenchymal change. Previous sternotomy for CABG is noted. Pacemaker is noted. Nasogastric tube is seen with tip lying within the stomach. Impression: 1. Tip of nasogastric tube within the stomach. 2. Nothing acute is otherwise seen on portable chest x-ray. Diagnostic code #2 This report was dictated in MDT
[2019-09-23] MEDS: Dextrose 5%-0.45% NaCl 1,000 ML IV SCH ×2 (14:38→21:08)
[2019-09-24] MEDS: Dextrose 5%-0.45% NaCl 1,000 ML IV SCH (04:34)
[2019-09-24] MEDS: cefTRIAXone 1 GM in Sodium Chloride 0.9% 100 ML IV SCH (08:21)
[2019-09-24] MEDS: Dextrose 5% in Water 1,000 ML IV SCH ×2 (08:22→12:30)
[2019-09-24] MEDS ORDERED: Magnesium Sulfate/Water 4 GM in Premix Bag 1 BAG IV ONE (10:30)
[2019-09-24] MEDS ORDERED: Dextrose 5%-0.45% NaCl 1,000 ML IV SCH ×2 (14:30→18:45)
[2019-09-24] MEDS: Potassium Chloride 10 MEQ in Premix Bag 1 BAG IV SCH ×3 (14:44→17:56)
[2019-09-24] MEDS ORDERED: Insulin Glarg,Human.Rec.Analog 100 Unit/ML SUBCUT ONE (18:30)
--- NOTE | 2019-09-24 19:18 | PCM.PN ---
- General Info Date of Service: 09/24/19 Admission Dx/Problem (Free Text): Admission Diagnosis/Problem Admission Diagnosis/Problem Hypernatremia Subjective Update: hypernatremia found on admission , hx of dehydration and poor oral intake x 3 weeks , sec to medical procedures and benign essential tremor and advanced age. increased care required for all adls Functional Status: Reports: Pain Controlled - Review of Systems General: Reports: Weakness HEENT: Reports: No Symptoms Pulmonary: Reports: No Symptoms Cardiovascular: Reports: Dyspnea on Exertion Gastrointestinal: Reports: Decreased Appetite Genitourinary: Reports: No Symptoms Musculoskeletal: Reports: No Symptoms Skin: Reports: No Symptoms Neurological: Reports: Confusion, Pre-Existing Deficit, Tremors, Trouble Speaking, Difficulty Walking, Change in Speech Psychiatric: Reports: Confusion - Patient Data Vitals - Most Recent: Last Vital Signs Temp 36.6 C 09/24/19 15:59 Pulse 81 09/24/19 15:59 Resp 16 09/24/19 15:59 BP 145/74 H 09/24/19 15:59 Pulse Ox 98 09/24/19 15:59 Weight - Most Recent: 94.347 kg I&O - Last 24 Hours: Intake & Output 09/24/19 09/24/19 09/24/19 06:59 14:59 22:59 Intake Total 2978 90 2907 Output Total 525 1050 Balance 2453 90 1857 Lab Results Last 24 Hours: Laboratory Results - last 24 hr 09/23/19 09/23/19 09/23/19 Range/Units 19:37 23:07 23:36 Sodium 158 H 156 H (136-145) mEq/L Potassium 4.1 4.1 (3.5-5.1) mEq/L Chloride 122 H 122 H (98-107) mEq/L Carbon Dioxide 24 23 (21-32) mEq/L Anion Gap 16.1 H 15.1 H (5-15) BUN 75 H 67 H (7-18) mg/dL Creatinine 1.6 H 1.5 H (0.7-1.3) mg/dL Est Cr Clr Drug Dosing TNP 41.23 Estimated GFR (MDRD) 42 45 (>60) mL/min BUN/Creatinine Ratio 46.9 H 44.7 H (14-18) Glucose 243 H 209 H (83-115) mg/dL POC Glucose 248 H (83-110) mg/dL Calcium 8.8 8.5 (8.5-10.1) mg/dL Phosphorus 3.3 3.1 (2.6-4.7) mg/dL Magnesium 1.9 1.8 (1.8-2.4) mg/dl 09/24/19 09/24/19 09/24/19 Range/Units 02:51 07:00 07:01 Sodium 156 H 156 H (136-145) mEq/L Potassium 3.8 4.0 (3.5-5.1) mEq/L Chloride 121 H 121 H (98-107) mEq/L Carbon Dioxide 22 22 (21-32) mEq/L Anion Gap 16.8 H 17.0 H (5-15) BUN 60 H 54 H (7-18) mg/dL Creatinine 1.3 1.2 (0.7-1.3) mg/dL Est Cr Clr Drug Dosing 47.57 51.54 Estimated GFR (MDRD) 53 58 (>60) mL/min BUN/Creatinine Ratio 46.2 H 45.0 H (14-18) Glucose 206 H 195 H (83-115) mg/dL POC Glucose 197 H (83-110) mg/dL Calcium 8.4 L 8.4 L (8.5-10.1) mg/dL Phosphorus 2.7 2.7 (2.6-4.7) mg/dL Magnesium 1.6 L 1.6 L (1.8-2.4) mg/dl 09/24/19 09/24/19 09/24/19 Range/Units 10:55 11:05 15:08 Sodium 153 H (136-145) mEq/L Potassium 3.8 (3.5-5.1) mEq/L Chloride 118 H (98-107) mEq/L Carbon Dioxide 24 (21-32) mEq/L Anion Gap 14.8 (5-15) BUN 48 H (7-18) mg/dL Creatinine 1.2 (0.7-1.3) mg/dL Est Cr Clr Drug Dosing 54.79 Estimated GFR (MDRD) 58 (>60) mL/min BUN/Creatinine Ratio 40.0 H (14-18) Glucose 262 H (83-115) mg/dL POC Glucose 266 H (83-110) mg/dL Calcium 8.5 (8.5-10.1) mg/dL Phosphorus 2.5 L 2.1 L (2.6-4.7) mg/dL Magnesium 1.7 L 2.6 H (1.8-2.4) mg/dl 09/24/19 Range/Units 17:59 Sodium (136-145) mEq/L Potassium (3.5-5.1) mEq/L Chloride (98-107) mEq/L Carbon Dioxide (21-32) mEq/L Anion Gap (5-15) BUN (7-18) mg/dL Creatinine (0.7-1.3) mg/dL Est Cr Clr Drug Dosing Estimated GFR (MDRD) (>60) mL/min BUN/Creatinine Ratio (14-18) Glucose (83-115) mg/dL POC Glucose 332 H (83-110) mg/dL Calcium (8.5-10.1) mg/dL Phosphorus (2.6-4.7) mg/dL Magnesium (1.8-2.4) mg/dl Artie Results Last 24 Hours: Microbiology 09/23/19 13:17 Aerobic Blood Culture - Preliminary Blood - Venous NO GROWTH AFTER 1 DAY Anaerobic Blood Culture - Preliminary NO GROWTH AFTER 1 DAY 09/23/19 13:08 Aerobic Blood Culture - Preliminary Blood - Venous - Lab Draw NO GROWTH AFTER 1 DAY Anaerobic Blood Culture - Preliminary NO GROWTH AFTER 1 DAY Med Orders - Current: Current Medications Ceftriaxone Sodium 1 gm/ (Sodium Chloride) 100 mls @ 200 mls/hr IV Q24H [facility] Last Admin: 09/24/19 08:21 Dose: 200 mls/hr Dextrose/Sodium Chloride (Dextrose 5%-1/2 Ns) 1,000 mls @ 75 mls/hr IV ASDIRECTED [facility] Ondansetron HCl (Zofran) 4 mg IV Q6H PRN PRN Reason: Nausea/Vomiting Discontinued Medications Dextrose/Water (Dextrose 5% In Water) 1,000 mls @ 100 mls/hr IV ASDIRECTED [facility] Last Admin: 09/23/19 12:57 Dose: 100 mls/hr Dextrose/Sodium Chloride (Dextrose 5%-1/2 Ns) 1,000 mls @ 150 mls/hr IV ASDIRECTED [facility] Last Admin: 09/24/19 04:34 Dose: 150 mls/hr Dextrose/Sodium Chloride (Dextrose 5%-1/2 Ns) 1,000 mls @ 999 mls/hr IV ASDIRECTED [facility] Stop: 09/23/19 14:01 Last Admin: 09/23/19 13:13 Dose: 999 mls/hr Dextrose/Sodium Chloride (Dextrose 5%-1/2 Ns) Confirm Administered Dose 1,000 mls @ as directed .ROUTE .STK-MED ONE Stop: 09/23/19 13:12 Last Admin: 09/23/19 14:40 Dose: Not Given Dextrose/Water (Dextrose 5% In Water) 1,000 mls @ 250 mls/hr IV ASDIRECTED [facility] Last Admin: 09/24/19 12:30 Dose: 250 mls/hr Magnesium Sulfate 4 gm/ Premix 50 mls @ 12.5 mls/hr IV ONETIME ONE Stop: 09/24/19 14:29 Last Admin: 09/24/19 10:54 Dose: 12.5 mls/hr Dextrose/Sodium Chloride (Dextrose 5%-1/2 Ns) 1,000 mls @ 125 mls/hr IV ASDIRECTED [facility] Last Admin: 09/24/19 14:44 Dose: 125 mls/hr Potassium Chloride 10 meq/ (Premix) 100 mls @ 100 mls/hr IV Q1H [facility] Stop: 09/24/19 17:29 Last Admin: 09/24/19 17:56 Dose: 100 mls/hr Insulin Glargine (Lantus) 15 unit SUBCUT ONETIME ONE Stop: 09/24/19 18:31 Last Admin: 09/24/19 18:56 Dose: 15 units - Exam Quality Assessment: Supplemental Oxygen General: Alert, Oriented HEENT: Pupils Equal, Pupils Reactive, EOMI, Mucous Membr. Moist/[place] Neck: Supple Lungs: Clear to Auscultation, Normal Respiratory Effort Cardiovascular: Regular Rate, Regular Rhythm GI/Abdominal Exam: Normal Bowel Sounds, Soft, Non-Tender, No Organomegaly, No Distention, No Abnormal Bruit, No Mass, Pelvis Stable (Male) Exam: No Hernia, Normal Inspection, Normal Prostate, Circumcised Back Exam: Normal Inspection, Full Range of Motion Extremities: Normal Inspection, Normal Range of Motion, Non-Tender, No Pedal Edema, Normal Capillary Refill Skin: Warm, Dry, Intact Wound/Incisions: Healing Well Neurological: No New Focal Deficit Psy/Mental Status: Alert, Normal Affect, Normal Mood Sepsis Event Note - Evaluation Sepsis Screening Result: No Definite Risk - Focused Exam Vital Signs: Vital Signs Temp Temp Pulse Pulse Resp BP BP 09/24/19 15:59 36.6 C 81 16 145/74 H 09/24/19 12:47 36.6 C 65 16 133/68 09/24/19 12:16 09/24/19 12:00 36.3 C 68 16 140/97 H 09/24/19 09:02 157/101 H Pulse Ox Pulse Ox 09/24/19 15:59 98 09/24/19 12:47 97 09/24/19 12:16 94 L 09/24/19 12:00 97 09/24/19 09:02 Date Exam was Performed: 09/24/19 Time Exam was Performed: 19:13 - Problem List & Annotations (1) COPD (chronic obstructive pulmonary disease) SNOMED Code(s): 52359989 Code(s): J44.9 - CHRONIC OBSTRUCTIVE PULMONARY DISEASE, UNSPECIFIED Status : Acute Priority: Medium Current Visit: Yes Onset Date: 09/23/19 Qualifiers: COPD type: emphysema Annotation/Comment:: no pneumonia features seen on exam / covid screen done (2) Chronic kidney disease (CKD), stage IV (severe) SNOMED Code(s): 008262048 Code(s): N18.4 - CHRONIC KIDNEY DISEASE, STAGE 4 (SEVERE) Status: Acute Priority: Medium Current Visit: Yes Onset Date: 09/23/19 Annotation/ Comment:: renal issues contributing to hypernatremia but main factor seems to be tremor and declining sensorium. decreased adls / worsening dementia and tremor (3) Dehydration SNOMED Code(s): 96620397 Code(s): E86.0 - DEHYDRATION Status: Acute Priority: High Current Visit : Yes Onset Date: 09/23/19 Annotation/Comment:: na 151 and on d5 1/2 ns and decreasing rate / bs elavated sec to high rate (4) Hyperchloremia SNOMED Code(s): 53892144 Code(s): E87.8 - OTH DISORDERS OF ELECTROLYTE AND FLUID BALANCE, NEC Status : Acute Priority: Medium Current Visit: Yes Onset Date: 09/23/19 (5) Hypernatremia SNOMED Code(s): 289002019 Code(s): E87.0 - HYPEROSMOLALITY AND HYPERNATREMIA Status: Acute Priority : High Current Visit: Yes Onset Date: 09/23/19 (6) Acute hyperglycemia SNOMED Code(s): 258940925 Code(s): R73.9 - HYPERGLYCEMIA, UNSPECIFIED Status: Acute Priority: Medium Current Visit: Yes Onset Date: 09/24/19 Annotation/Comment:: switching to d5 1/2 ns and decreasing rate - Problem List Review Problem List Initiated/Reviewed/Updated: Yes - My Orders Last 24 Hours: My Active Orders 09/24/19 18:33 Blood Glucose Check, Bedside [RC] TIDAC 09/24/19 18:45 Dextrose 5%-0.45% NaCl [Dextrose 5%-1/2 NS] 1,000 ml IV ASDIRECTED 09/25/19 05:00 CMP [COMPREHENSIVE METABOLIC PN,CMP] [CHEM] Routine - Plan Plan:: ASSESSMENT Day of Admission - Diagnosed with Alzheimer's in the past 6 months with recent lengthy admission --> discharged to [facility] [place] where he stayed for 3 weeks--> Transferred to [facility] due to requiring higher level of care - [place] declining mental status with decreased oral intake and decreased responsiveness--> labs as an outpatient with Na in 160s--> transferred to ED - Mental status decline multifactorial from natural disease progression and acute hospital admission associated delirium as well as volume depletion and hypernatremia - Na on admission 159 with water deficit of 6,098mL and obvious volume depletion signs on physical exam - No recent medication changes - VS on admission stable - GFR 37, previous admission GFR normal - Holl[place] catheter in place since admission to [place], verbally reported by to nursing 2/2 urinary retention--> pathologic UA on admission 09/24/19 assess 1)hypernatremia better cont d51/2 ns and decrease rate/ start insulin long acting. 2) recheck lab in am . 3) ng suction for free water admin/ doing better and will dc if not needed in am . 4)paced rhythm. hemodynamically stable 5)copd stable 6) hallucinations better but very confused and clearly seems to have dementia cog eval pending. reversible not known discussed with daughter and seems deteriorating sec to malnutrition and dehydration . 7)renal impairment creatinine improving recheck in am. 8)tremor benign essential type by previous eval but he cannot eat anymore ? if family favors a peg for sustenance . boh
[2019-09-25] MEDS: cefTRIAXone 1 GM in Sodium Chloride 0.9% 100 ML IV SCH (08:12)
--- NOTE | 2019-09-25 10:33 | PCM.PN ---
- General Info Date of Service: 09/25/19 Admission Dx/Problem (Free Text): Admission Diagnosis/Problem Admission Diagnosis/Problem Hypernatremia Admission Diagnosis/Problem Hypernatremia Subjective Update: hypernatremia found on admission , hx of dehydration and poor oral intake x 3 weeks , sec to medical procedures and benign essential tremor and advanced age. increased care required for all adls Functional Status: Reports: Pain Controlled - Review of Systems General: Reports: Weakness HEENT: Reports: No Symptoms Pulmonary: Reports: No Symptoms Cardiovascular: Reports: Dyspnea on Exertion Gastrointestinal: Reports: Decreased Appetite Genitourinary: Reports: No Symptoms Musculoskeletal: Reports: No Symptoms Skin: Reports: No Symptoms Neurological: Reports: Confusion, Pre-Existing Deficit, Tremors, Trouble Speaking, Difficulty Walking, Change in Speech Psychiatric: Reports: Confusion Subjective Update: hypernatremia found on admission , hx of dehydration and poor oral intake x 3 weeks , sec to medical procedures and benign essential tremor and advanced age. increased care required for all adls boh 09/25/19 ASSESSMENT Day of Admission - Diagnosed with Alzheimer's in the past 6 months with recent lengthy admission --> discharged to [facility] - [place], [place] where he stayed for 3 weeks--> Transferred to [facility] due to requiring higher level of care - Steadily declining mental status with decreased oral intake and decreased responsiveness--> labs as an outpatient with Na in 160s--> transferred to ED - Mental status decline multifactorial from natural disease progression and acute hospital admission associated delirium as well as volume depletion and hypernatremia - Na on admission 159 with water deficit of 6,098mL and obvious volume depletion signs on physical exam - No recent medication changes - VS on admission stable - GFR 37, previous admission GFR normal - Patterson catheter in place since admission to [place], verbally reported by to nursing 2/2 urinary retention--> pathologic UA on admission 09/24/19 assess 1)hypernatremia better cont d51/2 ns and decrease rate/ start insulin long acting. 2) recheck lab in am . 3) ng suction for free water admin/ doing better and will dc if not needed in am . 4)paced rhythm. hemodynamically stable 5)copd stable 6) hallucinations better but very confused and clearly seems to have dementia cog eval pending. reversible not known discussed with daughter and seems deteriorating sec to malnutrition and dehydration . 7)renal impairment creatinine improving recheck in am. 8)tremor benign essential type by previous eval but he cannot eat anymore ? if family favors a peg for sustenance . boh 09/25/19 afebrile/ rattly gurgly resp without apnea or increased rate or work of breathing. sleeping alot / no sedation x 48 hours. na 153 i.v. at 125 cc hour d5 1/2 ns k better low norm. creat stable weight not recorded. sacral decubiti covered and stage 2. no drainage. phimosis/ patterson cath in place / prob. hypospadius noted. skin not ischemic or broke down but increased edema lungs clear cor rrr short syst. m at rusb 07/29 abd benign/ positive b.m . neuro not responding to command or name but responds to pain rigidity fairly severe and uniform. tremor with any movements coarse with cogwheeling and intention. facies plus/minus apathetic .. trace edema not eating at all . lab as above. assess 1) hypernatremia still prominant and while not in heart failure will need lasix today or tomorrow. may slow correction. cont i.v decrease to 100/ hour and consider feeding tube placemnt sec to poor overall condition ./low protien and decline. 2)mild fluid overload . 3)decreased sensorium without signs of sepsis. 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 disease. 7) patient will require intensive support for adls / he may be a candidate for descalation or hospice care and snif care. 8) good pacemaker function. cvs stable Functional Status: Reports: Pain Controlled - Review of Systems General: Reports: No Symptoms, Weakness, Malaise, Appetite HEENT: Reports: No Symptoms Pulmonary: Reports: No Symptoms, Shortness of Breath, Cough, Other (trouble handling own secreations / trial of scopalamine) Cardiovascular: Reports: No Symptoms Gastrointestinal: Reports: No Symptoms Genitourinary: Reports: No Symptoms Musculoskeletal: Reports: No Symptoms Skin: Reports: No Symptoms Neurological: Reports: No Symptoms, Confusion, Pre-Existing Deficit, Tremors, Trouble Speaking, Difficulty Walking, Weakness, Change in Speech, Gait Disturbance Psychiatric: Reports: No Symptoms, Confusion - Patient Data Vitals - Most Recent: Last Vital Signs Temp 36.3 C 09/25/19 08:35 Pulse 69 09/25/19 08:35 Resp 24 H 09/25/19 08:35 BP 135/78 09/25/19 08:35 Pulse Ox 96 09/25/19 08:35 Weight - Most Recent: 96.026 kg I&O - Last 24 Hours: Intake & Output 09/24/19 09/25/19 09/25/19 22:59 06:59 14:59 Intake Total 2907 1325 Output Total 1050 1000 Balance 1857 325 Lab Results Last 24 Hours: Laboratory Results - last 24 hr 09/24/19 09/24/19 09/24/19 Range/Units 07:00 10:55 11:05 Sodium 153 H (136-145) mEq/L Potassium 3.8 (3.5-5.1) mEq/L Chloride 118 H (98-107) mEq/L Carbon Dioxide 24 (21-32) mEq/L Anion Gap 14.8 (5-15) BUN 48 H (7-18) mg/dL Creatinine 1.2 (0.7-1.3) mg/dL Est Cr Clr Drug Dosing 54.79 mL/min Estimated GFR (MDRD) 58 (>60) mL/min BUN/Creatinine Ratio 40.0 H (14-18) Glucose 262 H (83-115) mg/dL POC Glucose 197 H 266 H (83-110) mg/dL Calcium 8.5 (8.5-10.1) mg/dL Phosphorus 2.5 L (2.6-4.7) mg/dL Magnesium 1.7 L (1.8-2.4) mg/dl Total Bilirubin (0.2-1.0) mg/dL AST (15-37) U/L ALT (16-63) U/L Alkaline Phosphatase (46-116) U/L Total Protein (6.4-8.2) g/dl Albumin (3.4-5.0) g/dl Globulin gm/dL Albumin/Globulin Ratio (1-2) 09/24/19 09/24/19 09/24/19 Range/Units 15:08 17:59 19:15 Sodium (136-145) mEq/L Potassium (3.5-5.1) mEq/L Chloride (98-107) mEq/L Carbon Dioxide (21-32) mEq/L Anion Gap (5-15) BUN (7-18) mg/dL Creatinine (0.7-1.3) mg/dL Est Cr Clr Drug Dosing mL/min Estimated GFR (MDRD) (>60) mL/min BUN/Creatinine Ratio (14-18) Glucose (83-115) mg/dL POC Glucose 332 H (83-110) mg/dL Calcium (8.5-10.1) mg/dL Phosphorus 2.1 L 2.0 L (2.6-4.7) mg/dL Magnesium 2.6 H 2.1 (1.8-2.4) mg/dl Total Bilirubin (0.2-1.0) mg/dL AST (15-37) U/L ALT (16-63) U/L Alkaline Phosphatase (46-116) U/L Total Protein (6.4-8.2) g/dl Albumin (3.4-5.0) g/dl Globulin gm/dL Albumin/Globulin Ratio (1-2) 09/24/19 09/24/19 09/25/19 Range/Units 23:44 23:45 05:59 Sodium (136-145) mEq/L Potassium (3.5-5.1) mEq/L Chloride (98-107) mEq/L Carbon Dioxide (21-32) mEq/L Anion Gap (5-15) BUN (7-18) mg/dL Creatinine (0.7-1.3) mg/dL Est Cr Clr Drug Dosing mL/min Estimated GFR (MDRD) (>60) mL/min BUN/Creatinine Ratio (14-18) Glucose (83-115) mg/dL POC Glucose 271 H (83-110) mg/dL Calcium (8.5-10.1) mg/dL Phosphorus 2.0 L 2.3 L (2.6-4.7) mg/dL Magnesium 1.9 1.8 (1.8-2.4) mg/dl Total Bilirubin (0.2-1.0) mg/dL AST (15-37) U/L ALT (16-63) U/L Alkaline Phosphatase (46-116) U/L Total Protein (6.4-8.2) g/dl Albumin (3.4-5.0) g/dl Globulin gm/dL Albumin/Globulin Ratio (1-2) 09/25/19 09/25/19 Range/Units 05:59 06:42 Sodium 153 H (136-145) mEq/L Potassium 3.8 (3.5-5.1) mEq/L Chloride 117 H (98-107) mEq/L Carbon Dioxide 25 (21-32) mEq/L Anion Gap 14.8 (5-15) BUN 28 H (7-18) mg/dL Creatinine 1.0 (0.7-1.3) mg/dL Est Cr Clr Drug Dosing 65.74 mL/min Estimated GFR (MDRD) > 60 (>60) mL/min BUN/Creatinine Ratio 28.0 H (14-18) Glucose 208 H (83-115) mg/dL POC Glucose 211 H (83-110) mg/dL Calcium 8.2 L (8.5-10.1) mg/dL Phosphorus (2.6-4.7) mg/dL Magnesium (1.8-2.4) mg/dl Total Bilirubin 0.5 (0.2-1.0) mg/dL AST 30 (15-37) U/L ALT 34 (16-63) U/L Alkaline Phosphatase 95 (46-116) U/L Total Protein 5.9 L (6.4-8.2) g/dl Albumin 2.4 L (3.4-5.0) g/dl Globulin 3.5 gm/dL Albumin/Globulin Ratio 0.7 L (1-2) Artie Results Last 24 Hours: Microbiology 09/23/19 13:17 Aerobic Blood Culture - Preliminary Blood - Venous NO GROWTH AFTER 1 DAY Anaerobic Blood Culture - Preliminary NO GROWTH AFTER 1 DAY 09/23/19 13:08 Aerobic Blood Culture - Preliminary Blood - Venous - Lab Draw NO GROWTH AFTER 1 DAY Anaerobic Blood Culture - Preliminary NO GROWTH AFTER 1 DAY Med Orders - Current: Current Medications Ceftriaxone Sodium 1 gm/ (Sodium Chloride) 100 mls @ 200 mls/hr IV Q24H [facility] Last Admin: 09/25/19 08:12 Dose: 200 mls/hr Dextrose/Sodium Chloride (Dextrose 5%-1/2 Ns) 1,000 mls @ 75 mls/hr IV ASDIRECTED KATHY Last Admin: 09/25/19 01:26 Dose: 75 mls/hr Ondansetron HCl (Zofran) 4 mg IV Q6H PRN PRN Reason: Nausea/Vomiting Discontinued Medications Dextrose/Water (Dextrose 5% In Water) 1,000 mls @ 100 mls/hr IV ASDIRECTED [facility] Last Admin: 09/23/19 12:57 Dose: 100 mls/hr Dextrose/Sodium Chloride (Dextrose 5%-1/2 Ns) 1,000 mls @ 150 mls/hr IV ASDIRECTED [facility] Last Admin: 09/24/19 04:34 Dose: 150 mls/hr Dextrose/Sodium Chloride (Dextrose 5%-1/2 Ns) 1,000 mls @ 999 mls/hr IV ASDIRECTED [facility] Stop: 09/23/19 14:01 Last Admin: 09/23/19 13:13 Dose: 999 mls/hr Dextrose/Sodium Chloride (Dextrose 5%-1/2 Ns) Confirm Administered Dose 1,000 mls @ as directed .ROUTE .STK-MED ONE Stop: 09/23/19 13:12 Last Admin: 09/23/19 14:40 Dose: Not Given Dextrose/Water (Dextrose 5% In Water) 1,000 mls @ 250 mls/hr IV ASDIRECTED [facility] Last Admin: 09/24/19 12:30 Dose: 250 mls/hr Magnesium Sulfate 4 gm/ Premix 50 mls @ 12.5 mls/hr IV ONETIME ONE Stop: 09/24/19 14:29 Last Admin: 09/24/19 10:54 Dose: 12.5 mls/hr Dextrose/Sodium Chloride (Dextrose 5%-1/2 Ns) 1,000 mls @ 125 mls/hr IV ASDIRECTED [facility] Last Admin: 09/24/19 14:44 Dose: 125 mls/hr Potassium Chloride 10 meq/ (Premix) 100 mls @ 100 mls/hr IV Q1H [facility] Stop: 09/24/19 17:29 Last Admin: 09/24/19 17:56 Dose: 100 mls/hr Insulin Glargine (Lantus) 15 unit SUBCUT ONETIME ONE Stop: 09/24/19 18:31 Last Admin: 09/24/19 18:56 Dose: 15 units - Exam General: Alert, Oriented HEENT: Pupils Equal, Pupils Reactive, EOMI, Mucous Membr. Moist/[place] Neck: Supple, No JVD Lungs: Clear to Auscultation, Normal Respiratory Effort, Other Cardiovascular: Regular Rate, Regular Rhythm, Murmurs GI/Abdominal Exam: Normal Bowel Sounds, Soft, Non-Tender, No Organomegaly, No Distention, No Abnormal Bruit, No Mass, Pelvis Stable (Male) Exam: No Hernia, Normal Inspection, Normal Prostate, Circumcised, Penile Lesions, Other (phimosis/ hypospadius/ ) Back Exam: Normal Inspection, Full Range of Motion, Other (decubitus (grade 2) on sacrum 2x3 cm ) Extremities: Normal Inspection, Normal Range of Motion, Non-Tender, No Pedal Edema, Normal Capillary Refill Skin: Warm, Dry, Intact Wound/Incisions: Healing Well Neurological: No New Focal Deficit. No: Normal Gait, Normal Speech, Normal Tone , Strength Equal Bilateral, Reflexes Equal Bilateral, Sensation Intact Psy/Mental Status: Alert, Normal Affect, Normal Mood, Depressed Sepsis Event Note - Evaluation Sepsis Screening Result: No Definite Risk - Focused Exam Vital Signs: Vital Signs Temp Pulse Resp BP Pulse Ox 09/25/19 08:35 36.3 C 69 24 H 135/78 96 09/25/19 04:28 36.7 C 74 18 149/87 H 96 09/25/19 00:11 37.0 C 74 16 132/81 98 Date Exam was Performed: 09/25/19 Time Exam was Performed: 10:36 - Problem List & Annotations (1) COPD (chronic obstructive pulmonary disease) SNOMED Code(s): 33603562 Code(s): J44.9 - CHRONIC OBSTRUCTIVE PULMONARY DISEASE, UNSPECIFIED Status : Acute Priority: Medium Current Visit: Yes Onset Date: 09/23/19 Qualifiers: COPD type: emphysema Emphysema type: centrilobular Qualified Code(s): J43.2 - Centrilobular emphysema Annotation/Comment:: no pneumonia features seen on exam / covid screen done and negative/ rattly and trouble with oral pharingeal control. (2) Chronic kidney disease (CKD), stage IV (severe) SNOMED Code(s): 726421277 Code(s): N18.4 - CHRONIC KIDNEY DISEASE, STAGE 4 (SEVERE) Status: Acute Priority: Medium Current Visit: Yes Onset Date: 09/23/19 Annotation/ Comment:: renal issues contributing to hypernatremia but main factor seems to be tremor and declining sensorium. decreased adls / worsening dementia and tremor . creatinine stable (3) Dehydration SNOMED Code(s): 70505772 Code(s): E86.0 - DEHYDRATION Status: Acute Priority: High Current Visit : Yes Onset Date: 09/23/19 Annotation/Comment:: na 153 and on d5 1/2 ns and decreasing rate / bs elavated sec to high rate (4) Hyperchloremia SNOMED Code(s): 79524003 Code(s): E87.8 - OTH DISORDERS OF ELECTROLYTE AND FLUID BALANCE, NEC Status : Acute Priority: Medium Current Visit: Yes Onset Date: 09/23/19 Annotation/Comment:: hyperchloremia sec to n.g suction . monitoring and may give free water through n.g. (5) Hypernatremia SNOMED Code(s): 474306576 Code(s): E87.0 - HYPEROSMOLALITY AND HYPERNATREMIA Status: Acute Priority : High Current Visit: Yes Onset Date: 09/23/19 (6) Acute hyperglycemia SNOMED Code(s): 758797762 Code(s): R73.9 - HYPERGLYCEMIA, UNSPECIFIED Status: Acute Priority: Medium Current Visit: Yes Onset Date: 09/24/19 Annotation/Comment:: switching to d5 1/2 ns and decreasing rate (7) Parkinson's disease dementia SNOMED Code(s): 097763259461056 Code(s): G20 - PARKINSON'S DISEASE; F02.80 - DEMENTIA IN OTH DISEASES CLASSD ELSWHR W/O BEHAVRL DISTURB Status: Acute Priority: High Current Visit: Yes Onset Date: 09/24/19 Qualifiers: Dementia behavioral disturbance: without behavioral disturbance Qualified Code(s): G20 - Parkinson's disease; F02.80 - Dementia in other diseases classified elsewhere without behavioral disturbance Annotation/Comment:: known dx for many years of benign tremor by primary care but many features of parkosons disease including cogwheeling / intention tremor/akithesia / bradikinetheia and falling/ speech impaired and new dementia features.can talk and converse but cannot swallow well currently obtunded still form underlying disease and or cerebral vasc. disease/ dementia (8) Decubitus ulcer SNOMED Code(s): 488783994 Code(s): L89.90 - PRESSURE ULCER OF UNSPECIFIED SITE, UNSPECIFIED STAGE Status: Acute Priority: Medium Current Visit: Yes Onset Date: 09/24/19 Qualifiers: Pressure injury location: sacral region Pressure injury stage: stage 2 Qualified Code(s): L89.152 - Pressure ulcer of sacral region, stage 2 (9) Excessive oral secretions SNOMED Code(s): 12571940 Code(s): R68.89 - OTHER GENERAL SYMPTOMS AND SIGNS Status: Acute Current Visit: Yes Onset Date: 09/25/19 Annotation/Comment:: feel strongly he has underlying cerebral vasc disease contributing to overall conditions - Problem List Review Problem List Initiated/Reviewed/Updated: Yes - My Orders Last 24 Hours: My Active Orders 09/24/19 18:33 Blood Glucose Check, Bedside [RC] TIDAC 09/24/19 18:45 Dextrose 5%-0.45% NaCl [Dextrose 5%-1/2 NS] 1,000 ml IV ASDIRECTED cont current d5 1/2 ns at 100 cc hour - Plan Plan:: ASSESSMENT Day of Admission - Diagnosed with Alzheimer's in the past 6 months with recent lengthy admission --> discharged to [facility] - [place], [place] where he stayed for 3 weeks--> Transferred to [facility] due to requiring higher level of care - Steadily declining mental status with decreased oral intake and decreased responsiveness--> labs as an outpatient with Na in 160s--> transferred to ED - Mental status decline multifactorial from natural disease progression and acute hospital admission associated delirium as well as volume depletion and hypernatremia - Na on admission 159 with water deficit of 6,098mL and obvious volume depletion signs on physical exam - No recent medication changes - VS on admission stable - GFR 37, previous admission GFR normal - Patterson catheter in place since admission to [place], verbally reported by to nursing 2/2 urinary retention--> pathologic UA on admission 09/24/19 assess 1)hypernatremia better cont d51/2 ns and decrease rate/ start insulin long acting. 2) recheck lab in am . 3) ng suction for free water admin/ doing better and will dc if not needed in am . 4)paced rhythm. hemodynamically stable 5)copd stable 6) hallucinations better but very confused and clearly seems to have dementia cog eval pending. reversible not known discussed with daughter and seems deteriorating sec to malnutrition and dehydration . 7)renal impairment creatinine improving recheck in am. 8)tremor benign essential type by previous eval but he cannot eat anymore ? if family favors a peg for sustenance . boh 09/25/19 09/25/19 afebrile/ rattly gurgly resp without apnea or increased rate or work of breathing. sleeping alot / no sedation x 48 hours. na 153 i.v. at 125 cc hour d5 1/2 ns k better low norm. creat stable weight not recorded. sacral decubiti covered and stage 2. no drainage. phimosis/ patterson cath in place / prob. hypospadius noted. skin not ischemic or broke down but increased edema lungs clear cor rrr short syst. m at rusb 07/29 abd benign/ positive b.m . neuro not responding to command or name but responds to pain rigidity fairly severe and uniform. tremor with any movements coarse with cogwheeling and intention. facies plus/minus apathetic .. trace edema not eating at all . lab as above. assess 1) hypernatremia still prominant and while not in heart failure will need lasix today or tomorrow. may slow correction. cont i.v decrease to 100/ hour and consider feeding tube placemnt sec to poor overall condition ./low protien and decline. 2)mild fluid overload . 3)decreased sensorium without signs of sepsis. 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 disease. 7) patient will require intensive support for adls / he may be a candidate for descalation or hospice care and snif care. 8) good pacemaker function. 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
[2019-09-25] MEDS: Dextrose 5% in Water 1,000 ML IV SCH (11:24)
[2019-09-25] MEDS ORDERED: Magnesium Sulfate/Water 2 GM in Premix Bag 1 BAG IV ONE (15:00)
[2019-09-26] MEDS ORDERED: Magnesium Hydroxide 400 MG/5 ML Susp 30 ML Cup PO PRN (04:41)
[2019-09-26] MEDS: Dextrose 5% in Water 1,000 ML IV SCH (06:39)
[2019-09-26] MEDS: cefTRIAXone 1 GM in Sodium Chloride 0.9% 100 ML IV SCH (07:51)
[2019-09-26] MEDS ORDERED: 50% Dextrose in Water 50 ML SDV IV SCH (10:45)
[2019-09-26] MEDS ORDERED: Magnesium Sulfate/Water 2 GM in Premix Bag 1 BAG IV ONE (10:51)
[2019-09-26] MEDS ORDERED: levETIRAcetam 500 MG Tab PO SCH (11:00)
[2019-09-26] MEDS ORDERED: Propranolol 10 MG Tab PO SCH (11:01)
[2019-09-26] MEDS: Insulin Glarg,Human.Rec.Analog 100 Unit/ML SUBCUT SCH (11:16)
[2019-09-26] MEDS: Memantine 10 MG Tab PO SCH ×2 (11:19→20:44)
--- NOTE | 2019-09-26 12:06 | PCM.PN ---
- General Info Date of Service: 09/26/19 Admission Dx/Problem (Free Text): admitted with hypernatremia /dehydration/ altered mental status/possible uti and urinary obstruction. Subjective Update: hypernatremia found on admission , hx of dehydration and poor oral intake x 3 weeks , sec to medical procedures and benign essential tremor and advanced age. increased care required for all adls boh 09/25/19 ASSESSMENT Day of Admission - Diagnosed with Alzheimer's in the past 6 months with recent lengthy admission --> discharged to [facility] where he stayed for 3 weeks--> Transferred to [facility] due to requiring higher level of care - Steadily declining mental status with decreased oral intake and decreased responsiveness--> labs as an outpatient with Na in 160s--> transferred to ED - Mental status decline multifactorial from natural disease progression and acute hospital admission associated delirium as well as volume depletion and hypernatremia - Na on admission 159 with water deficit of 6,098mL and obvious volume depletion signs on physical exam - No recent medication changes - VS on admission stable - GFR 37, previous admission GFR normal - Patterson catheter in place since admission to [place], verbally reported by to nursing 2/2 urinary retention--> pathologic UA on admission 09/24/19 assess 1)hypernatremia better cont d51/2 ns and decrease rate/ start insulin long acting. 2) recheck lab in am . 3) ng suction for free water admin/ doing better and will dc if not needed in am . 4)paced rhythm. hemodynamically stable 5)copd stable 6) hallucinations better but very confused and clearly seems to have dementia cog eval pending. reversible not known discussed with daughter and seems deteriorating sec to malnutrition and dehydration . 7)renal impairment creatinine improving recheck in am. 8)tremor benign essential type by previous eval but he cannot eat anymore ? if family favors a peg for sustenance . boh 09/25/19 afebrile/ rattly gurgly resp without apnea or increased rate or work of breathing. sleeping alot / no sedation x 48 hours. na 153 i.v. at 125 cc hour d5 1/2 ns k better low norm. creat stable weight not recorded. sacral decubiti covered and stage 2. no drainage. phimosis/ patterson cath in place / prob. hypospadius noted. skin not ischemic or broke down but increased edema lungs clear cor rrr short syst. m at rusb 2/6 abd benign/ positive b.m . neuro not responding to command or name but responds to pain rigidity fairly severe and uniform. tremor with any movements coarse with cogwheeling and intention. facies plus/minus apathetic .. trace edema not eating at all . lab as above. assess 1) hypernatremia still prominant and while not in heart failure will need lasix today or tomorrow. may slow correction. cont i.v decrease to 100/ hour and consider feeding tube placemnt sec to poor overall condition ./low protien and decline. 2)mild fluid overload . 3)decreased sensorium without signs of sepsis. 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 disease. 7) patient will require intensive support for adls / he may be a candidate for descalation or hospice care and snif care. 8) good pacemaker function. cvs stable 09/26/19 afebrile i.v. d5 / and piggibacked d5w and switched to d 5 w at 50 vss. positive fluid balance 1 liter. good urine output patterson cath in . phimosis same . meatal ulcer and hypospadius noted . lungs clear cor rrr. abd benign and eating. skin sacral decub covered. neuro : awake and cohesive and talking but baseline dementia evident. not oriented to place or date. tremor intention very evident weakness unchanged 2 person lift and cannot control body position. no signs aspiration. lab na 148/k 5.2 bs 168. assess: 1)hypernatremia improved 2) altered mental status improved. 3) tremor restart inderal. 4) i.v decrease d5 5)patterson dc if he can void. 6) phimosis trying to get foreskin retracted but edema still present. 7) cad stable 8) dehydration resolving. 9) dementia discussed n.h and advanced degre with daughter and . 10) diabetes control with insulin / hold metformin until lactic acid baseline is known . 11) copd very stable boh Plan see above boh Functional Status: Reports: Pain Controlled, Tolerating Diet - Review of Systems General: Reports: No Symptoms HEENT: Reports: No Symptoms Pulmonary: Reports: No Symptoms Cardiovascular: Reports: No Symptoms Gastrointestinal: Reports: No Symptoms Genitourinary: Reports: No Symptoms Musculoskeletal: Reports: No Symptoms Skin: Reports: No Symptoms Neurological: Reports: No Symptoms, Confusion, Pre-Existing Deficit, Seizure, Tremors, Trouble Speaking, Change in Speech, Gait Disturbance Psychiatric: Reports: No Symptoms - Patient Data Vitals - Most Recent: Last Vital Signs Temp 36.6 C 09/26/19 07:53 Pulse 77 09/26/19 07:53 Resp 18 09/26/19 07:53 BP 121/75 09/26/19 07:53 Pulse Ox 98 09/26/19 07:53 Weight - Most Recent: 97.704 kg I&O - Last 24 Hours: Intake & Output 09/25/19 09/26/19 09/26/19 22:59 06:59 14:59 Intake Total 1672 761 120 Output Total 600 600 Balance 1072 161 120 Lab Results Last 24 Hours: Laboratory Results - last 24 hr 09/25/19 09/25/19 09/26/19 Range/Units 11:15 17:29 06:25 WBC (4.23-9.07) K/mm3 RBC (4.63-6.08) M/mm3 Hgb (13.7-17.5) gm/dl Hct (40.1-51.0) % MCV (79.0-92.2) fl MCH (25.7-32.2) pg MCHC (32.2-35.5) g/dl RDW Std Deviation (35.1-43.9) fL Plt Count (163-337) K/mm3 MPV (9.4-12.3) fl Neut % (Auto) (34.0-67.9) % Lymph % (Auto) (21.8-53.1) % [place] % (Auto) (5.3-12.2) % Eos % (Auto) (0.8-7.0) Baso % (Auto) (0.1-1.2) % Neut # (Auto) (1.78-5.38) K/mm3 Lymph # (Auto) (1.32-3.57) K/mm3 [place] # (Auto) (0.30-0.82) K/mm3 Eos # (Auto) (0.04-0.54) K/mm3 Baso # (Auto) (0.01-0.08) K/mm3 Manual Slide Review Sodium 149 H (136-145) mEq/L Potassium 5.2 H (3.5-5.1) mEq/L Chloride 114 H (98-107) mEq/L Carbon Dioxide 25 (21-32) mEq/L Anion Gap 15.2 H (5-15) BUN 19 H (7-18) mg/dL Creatinine 0.9 (0.7-1.3) mg/dL Est Cr Clr Drug Dosing 73.05 mL/min Estimated GFR (MDRD) > 60 (>60) mL/min BUN/Creatinine Ratio 21.1 H (14-18) Glucose 266 H (83-115) mg/dL POC Glucose 245 H (83-110) mg/dL Calcium 8.6 (8.5-10.1) mg/dL Phosphorus 2.3 L (2.6-4.7) mg/dL Magnesium 1.7 L 1.7 L (1.8-2.4) mg/dl NT-Pro-B Natriuret Pep (0-450) pg/mL 09/26/19 09/26/19 09/26/19 Range/Units 06:25 06:25 06:25 WBC 8.51 (4.23-9.07) K/mm3 RBC 4.60 L (4.63-6.08) M/mm3 Hgb 13.7 (13.7-17.5) gm/dl Hct 42.4 (40.1-51.0) % MCV 92.2 D (79.0-92.2) fl MCH 29.8 (25.7-32.2) pg MCHC 32.3 (32.2-35.5) g/dl RDW Std Deviation 43.5 (35.1-43.9) fL Plt Count 107 L (163-337) K/mm3 MPV 10.9 (9.4-12.3) fl Neut % (Auto) 68.7 H (34.0-67.9) % Lymph % (Auto) 15.3 L (21.8-53.1) % [place] % (Auto) 8.0 (5.3-12.2) % Eos % (Auto) 7.5 H (0.8-7.0) Baso % (Auto) 0.4 (0.1-1.2) % Neut # (Auto) 5.85 H (1.78-5.38) K/mm3 Lymph # (Auto) 1.30 L (1.32-3.57) K/mm3 [place] # (Auto) 0.68 (0.30-0.82) K/mm3 Eos # (Auto) 0.64 H (0.04-0.54) K/mm3 Baso # (Auto) 0.03 (0.01-0.08) K/mm3 Manual Slide Review Normal smear Sodium (136-145) mEq/L Potassium (3.5-5.1) mEq/L Chloride (98-107) mEq/L Carbon Dioxide (21-32) mEq/L Anion Gap (5-15) BUN (7-18) mg/dL Creatinine (0.7-1.3) mg/dL Est Cr Clr Drug Dosing mL/min Estimated GFR (MDRD) (>60) mL/min BUN/Creatinine Ratio (14-18) Glucose (83-115) mg/dL POC Glucose 226 H (83-110) mg/dL Calcium (8.5-10.1) mg/dL Phosphorus (2.6-4.7) mg/dL Magnesium (1.8-2.4) mg/dl NT-Pro-B Natriuret Pep 1604 H (0-450) pg/mL 09/26/19 Range/Units 11:14 WBC (4.23-9.07) K/mm3 RBC (4.63-6.08) M/mm3 Hgb (13.7-17.5) gm/dl Hct (40.1-51.0) % MCV (79.0-92.2) fl MCH (25.7-32.2) pg MCHC (32.2-35.5) g/dl RDW Std Deviation (35.1-43.9) fL Plt Count (163-337) K/mm3 MPV (9.4-12.3) fl Neut % (Auto) (34.0-67.9) % Lymph % (Auto) (21.8-53.1) % [place] % (Auto) (5.3-12.2) % Eos % (Auto) (0.8-7.0) Baso % (Auto) (0.1-1.2) % Neut # (Auto) (1.78-5.38) K/mm3 Lymph # (Auto) (1.32-3.57) K/mm3 [place] # (Auto) (0.30-0.82) K/mm3 Eos # (Auto) (0.04-0.54) K/mm3 Baso # (Auto) (0.01-0.08) K/mm3 Manual Slide Review Sodium (136-145) mEq/L Potassium (3.5-5.1) mEq/L Chloride (98-107) mEq/L Carbon Dioxide (21-32) mEq/L Anion Gap (5-15) BUN (7-18) mg/dL Creatinine (0.7-1.3) mg/dL Est Cr Clr Drug Dosing mL/min Estimated GFR (MDRD) (>60) mL/min BUN/Creatinine Ratio (14-18) Glucose (83-115) mg/dL POC Glucose 383 H (83-110) mg/dL Calcium (8.5-10.1) mg/dL Phosphorus (2.6-4.7) mg/dL Magnesium (1.8-2.4) mg/dl NT-Pro-B Natriuret Pep (0-450) pg/mL Artie Results Last 24 Hours: Microbiology 09/23/19 13:17 Aerobic Blood Culture - Preliminary Blood - Venous NO GROWTH AFTER 2 DAYS Anaerobic Blood Culture - Preliminary NO GROWTH AFTER 2 DAYS 09/23/19 13:08 Aerobic Blood Culture - Preliminary Blood - Venous - Lab Draw NO GROWTH AFTER 2 DAYS Anaerobic Blood Culture - Preliminary NO GROWTH AFTER 2 DAYS 09/23/19 11:24 Urine Culture - Final Urine, Voided NO GROWTH AFTER 2 DAYS 09/23/19 16:45 Urine Culture - Final Urine, Patterson Cath (Indwelling) NO GROWTH AFTER 2 DAYS Med Orders - Current: Current Medications Dextrose/Water (Dextrose 50% In Water) 100 ml IV ASDIRECTED KATHY Stop: 09/26/19 19:00 Dextrose/Water (Dextrose 5% In Water) 1,000 mls @ 50 mls/hr IV ASDIRECTED [facility] Last Admin: 09/26/19 06:39 Dose: 50 mls/hr Magnesium Sulfate 2 gm/ Premix 50 mls @ 25 mls/hr IV ONETIME ONE Stop: 09/26/19 12:50 Last Admin: 09/26/19 11:18 Dose: 25 mls/hr Insulin Glargine (Lantus) 26 unit SUBCUT DAILY [facility] Last Admin: 09/26/19 11:16 Dose: 26 units Levetiracetam (Keppra) 500 mg PO BID [facility] Last Admin: 09/26/19 11:20 Dose: 500 mg Magnesium Hydroxide (Milk Of Magnesia) 30 ml PO ONETIME PRN PRN Reason: Constipation Last Admin: 09/26/19 05:57 Dose: 30 ml Memantine (Namenda) 5 mg PO BID [facility] Last Admin: 09/26/19 11:19 Dose: 5 mg Ondansetron HCl (Zofran) 4 mg IV Q6H PRN PRN Reason: Nausea/Vomiting Propranolol HCl (Inderal) 10 mg PO TID [facility] Tamsulosin HCl (Flomax) 0.4 mg PO BEDTIME [facility] Discontinued Medications Dextrose/Water (Dextrose 5% In Water) 1,000 mls @ 100 mls/hr IV ASDIRECTED [facility] Last Admin: 09/23/19 12:57 Dose: 100 mls/hr Dextrose/Sodium Chloride (Dextrose 5%-1/2 Ns) 1,000 mls @ 150 mls/hr IV ASDIRECTED [facility] Last Admin: 09/24/19 04:34 Dose: 150 mls/hr Dextrose/Sodium Chloride (Dextrose 5%-1/2 Ns) 1,000 mls @ 999 mls/hr IV ASDIRECTED [facility] Stop: 09/23/19 14:01 Last Admin: 09/23/19 13:13 Dose: 999 mls/hr Dextrose/Sodium Chloride (Dextrose 5%-1/2 Ns) Confirm Administered Dose 1,000 mls @ as directed .ROUTE .STK-MED ONE Stop: 09/23/19 13:12 Last Admin: 09/23/19 14:40 Dose: Not Given Ceftriaxone Sodium 1 gm/ (Sodium Chloride) 100 mls @ 200 mls/hr IV Q24H [facility] Last Admin: 09/26/19 07:51 Dose: 200 mls/hr Dextrose/Water (Dextrose 5% In Water) 1,000 mls @ 250 mls/hr IV ASDIRECTED [facility] Last Admin: 09/24/19 12:30 Dose: 250 mls/hr Magnesium Sulfate 4 gm/ Premix 50 mls @ 12.5 mls/hr IV ONETIME ONE Stop: 09/24/19 14:29 Last Admin: 09/24/19 10:54 Dose: 12.5 mls/hr Dextrose/Sodium Chloride (Dextrose 5%-1/2 Ns) 1,000 mls @ 125 mls/hr IV ASDIRECTED [facility] Last Admin: 09/24/19 14:44 Dose: 125 mls/hr Potassium Chloride 10 meq/ (Premix) 100 mls @ 100 mls/hr IV Q1H [facility] Stop: 09/24/19 17:29 Last Admin: 09/24/19 17:56 Dose: 100 mls/hr Dextrose/Sodium Chloride (Dextrose 5%-1/2 Ns) 1,000 mls @ 75 mls/hr IV ASDIRECTED [facility] Last Admin: 09/25/19 01:26 Dose: 75 mls/hr Magnesium Sulfate 2 gm/ Premix 50 mls @ 25 mls/hr IV ONETIME ONE Stop: 09/25/19 16:59 Last Admin: 09/25/19 16:13 Dose: 25 mls/hr Insulin Glargine (Lantus) 15 unit SUBCUT ONETIME ONE Stop: 09/24/19 18:31 Last Admin: 09/24/19 18:56 Dose: 15 units - Exam General: Alert, Oriented HEENT: Pupils Equal, Pupils Reactive, EOMI, Mucous Membr. Moist/[place] Neck: Supple Lungs: Clear to Auscultation, Normal Respiratory Effort Cardiovascular: Regular Rate, Regular Rhythm GI/Abdominal Exam: Normal Bowel Sounds, Soft, Non-Tender, No Organomegaly, No Distention, No Abnormal Bruit, No Mass, Pelvis Stable (Male) Exam: No Hernia, Normal Inspection, Normal Prostate, Circumcised Back Exam: Normal Inspection, Full Range of Motion Extremities: Normal Inspection, Normal Range of Motion, Non-Tender, No Pedal Edema, Normal Capillary Refill Skin: Warm, Dry, Intact Wound/Incisions: Healing Well Neurological: No New Focal Deficit Psy/Mental Status: Alert, Normal Affect, Normal Mood Sepsis Event Note - Evaluation Sepsis Screening Result: No Definite Risk - Focused Exam Vital Signs: Vital Signs Temp Pulse Resp BP Pulse Ox 09/26/19 07:53 36.6 C 77 18 121/75 98 09/26/19 04:13 36.8 C 75 16 145/91 H 98 09/26/19 00:32 36.5 C 65 20 140/71 93 L Date Exam was Performed: 09/26/19 Time Exam was Performed: 11:38 - Problem List & Annotations (1) COPD (chronic obstructive pulmonary disease) SNOMED Code(s): 63246841 Code(s): J44.9 - CHRONIC OBSTRUCTIVE PULMONARY DISEASE, UNSPECIFIED Status : Acute Priority: Medium Current Visit: Yes Onset Date: 09/23/19 Qualifiers: COPD type: emphysema Emphysema type: centrilobular Qualified Code(s): J43.2 - Centrilobular emphysema Annotation/Comment:: no pneumonia features seen on exam / covid screen done and negative/ rattly and trouble with oral pharingeal control. 09/26/19 patient unlikely to be able to use ppi and will hold as not having resp issues at all/ (2) Chronic kidney disease (CKD), stage IV (severe) SNOMED Code(s): 674605845 Code(s): N18.4 - CHRONIC KIDNEY DISEASE, STAGE 4 (SEVERE) Status: Chronic Priority: Medium Current Visit: Yes Onset Date: 09/23/19 Annotation/ Comment:: renal issues contributing to hypernatremia but main factor seems to be tremor and declining sensorium. decreased adls / worsening dementia and tremor . creatinine stable. 09/26/19 na 148. hydration stable . creatinine 1.2 and bun 70. restart oral meds keppra/ inderal (3) Dehydration SNOMED Code(s): 03650482 Code(s): E86.0 - DEHYDRATION Status: Acute Priority: High Current Visit : Yes Onset Date: 09/23/19 Annotation/Comment:: na 153 and on d5 1/2 ns and decreasing rate / bs elavated sec to high rate . 09/26/19 appears euvolemic clinically (4) Hyperchloremia SNOMED Code(s): 88696448 Code(s): E87.8 - OTH DISORDERS OF ELECTROLYTE AND FLUID BALANCE, NEC Status : Acute Priority: Medium Current Visit: Yes Onset Date: 09/23/19 Annotation/Comment:: hyperchloremia sec to n.g suction . monitoring and may give free water through n.g. 09/26/19 chloride same and n.g tube out x 24 hours (5) Hypernatremia SNOMED Code(s): 389356636 Code(s): E87.0 - HYPEROSMOLALITY AND HYPERNATREMIA Status: Acute Priority : High Current Visit: Yes Onset Date: 09/23/19 (6) Acute hyperglycemia SNOMED Code(s): 920288287 Code(s): R73.9 - HYPERGLYCEMIA, UNSPECIFIED Status: Acute Priority: Medium Current Visit: Yes Onset Date: 09/24/19 Annotation/Comment:: switching to d5 1/2 ns and decreasing rate. 09/26/19 start insulin long acting at previous dose. bs 150-190 not restarting metformina nd check lactic acid baseline. eating 50% portions. (7) Parkinson's disease dementia SNOMED Code(s): 558640951186586 Code(s): G20 - PARKINSON'S DISEASE; F02.80 - DEMENTIA IN OTH DISEASES CLASSD ELSWHR W/O BEHAVRL DISTURB Status: Acute Priority: High Current Visit: Yes Onset Date: 09/24/19 Qualifiers: Dementia behavioral disturbance: with behavioral disturbance Qualified Code (s): G20 - Parkinson's disease; F02.81 - Dementia in other diseases classified elsewhere with behavioral disturbance Annotation/Comment:: known dx for many years of benign tremor by primary care but many features of parkosons disease including cogwheeling / intention tremor/akithesia / bradikinetheia and falling/ speech impaired and new dementia features.can talk and converse but cannot swallow well currently obtunded still form underlying disease and or cerebral vasc. disease/ dementia . 09/26/19 remarckable clearing of neuro status talking and interacting and acting like self . restart keppra and namenda ? contibuting to confusion ? on no ativan or other sedating meds x 72 hours (8) Decubitus ulcer SNOMED Code(s): 937042060 Code(s): L89.90 - PRESSURE ULCER OF UNSPECIFIED SITE, UNSPECIFIED STAGE Status: Acute Priority: Medium Current Visit: Yes Onset Date: 09/24/19 Qualifiers: Pressure injury location: sacral region Pressure injury stage: stage 2 Qualified Code(s): L89.152 - Pressure ulcer of sacral region, stage 2 (9) Excessive oral secretions SNOMED Code(s): 67187628 Code(s): R68.89 - OTHER GENERAL SYMPTOMS AND SIGNS Status: Acute Current Visit: Yes Onset Date: 09/25/19 Annotation/Comment:: feel strongly he has underlying cerebral vasc disease contributing to overall conditions. 09/26/19 restart keppra and namenda. (10) Exposure to anticonvulsant SNOMED Code(s): 236388522 Code(s): QUY5978 - Status: Acute Current Visit: Yes (11) Chronic indwelling Patterson catheter SNOMED Code(s): 175326256 Code(s): Z96.0 - PRESENCE OF UROGENITAL IMPLANTS Status: Acute Priority: High Current Visit: Yes Onset Date: 09/22/19 Annotation/Comment:: has ulcer and phimosis and care requiring lidocaine jelly / chronic hematuria and sediment but urine culture negative. off antibiotics (12) Diabetes mellitus SNOMED Code(s): 60943859 Code(s): E11.9 - TYPE 2 DIABETES MELLITUS WITHOUT COMPLICATIONS Status: Acute Priority: High Current Visit: Yes Onset Date: 09/22/19 Qualifiers: Diabetes mellitus type: type 2 Diabetes mellitus complication detail: with unspecified neuropathy - Problem List Review Problem List Initiated/Reviewed/Updated: Yes - My Orders Last 24 Hours: My Active Orders 09/25/19 11:15 Dextrose 5% in Water 1,000 ml IV ASDIRECTED 09/25/19 12:58 Communication Order [RC] ROUTINE 09/26/19 04:41 Magnesium Hydroxide [Milk of Magnesia] 30 ml PO ONETIME PRN 09/26/19 10:51 Magnesium Sulfate/Water [Magnesium Sulfate in Water Premix] 2 gm Premix Bag 1 bag IV ONETIME 09/26/19 10:59 BETA-2 MICROGLOBULIN, SERUM [REF] Routine 09/26/19 11:00 Insulin Glarg,Human.Rec.Analog [LantUS] 26 unit SUBCUT DAILY Memantine [Namenda] 5 mg PO BID levETIRAcetam [Keppra] 500 mg PO BID start keppra and nametadine/ start long acting insulin 26 lantis started check lactic acid / lidocaine jelly for phimosis pain./ decrease i.v / recheck na and creatinine in am. boh - Plan Plan:: ASSESSMENT Day of Admission - Diagnosed with Alzheimer's in the past 6 months with recent lengthy admission --> [facility]--> Transferred to [facility] due to requiring higher level of care - Steadily declining mental status with decreased oral intake and decreased responsiveness--> labs as an outpatient with Na in 160s--> transferred to ED - Mental status decline multifactorial from natural disease progression and acute hospital admission associated delirium as well as volume depletion and hypernatremia - Na on admission 159 with water deficit of 6,098mL and obvious volume depletion signs on physical exam - No recent medication changes - VS on admission stable - GFR 37, previous admission GFR normal - Patterson catheter in place since admission to [facility], verbally reported by to nursing 2/2 urinary retention--> pathologic UA on admission 09/24/19 assess 1)hypernatremia better cont d51/2 ns and decrease rate/ start insulin long acting. 2) recheck lab in am . 3) ng suction for free water admin/ doing better and will dc if not needed in am . 4)paced rhythm. hemodynamically stable 5)copd stable 6) hallucinations better but very confused and clearly seems to have dementia cog eval pending. reversible not known discussed with daughter and seems deteriorating sec to malnutrition and dehydration . 7)renal impairment creatinine improving recheck in am. 8)tremor benign essential type by previous eval but he cannot eat anymore ? if family favors a peg for sustenance . boh 09/25/19 09/25/19 afebrile/ rattly gurgly resp without apnea or increased rate or work of breathing. sleeping alot / no sedation x 48 hours. na 153 i.v. at 125 cc hour d5 1/2 ns k better low norm. creat stable weight not recorded. sacral decubiti covered and stage 2. no drainage. phimosis/ patterson cath in place / prob. hypospadius noted. skin not ischemic or broke down but increased edema lungs clear cor rrr short syst. m at rusb 2/6 abd benign/ positive b.m . neuro not responding to command or name but responds to pain rigidity fairly severe and uniform. tremor with any movements coarse with cogwheeling and intention. facies plus/minus apathetic .. trace edema not eating at all . lab as above. assess 1) hypernatremia still prominant and while not in heart failure will need lasix today or tomorrow. may slow correction. cont i.v decrease to 100/ hour and consider feeding tube placemnt sec to poor overall condition ./low protien and decline. 2)mild fluid overload . 3)decreased sensorium without signs of sepsis. 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 disease. 7) patient will require intensive support for adls / he may be a candidate for descalation or hospice care and snif care. 8) good pacemaker function. 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 d5 1/2 and piggibacked d5w and switched to d 5 w at 50 vss. positive fluid balance 1 liter. good urine output patterson cath in . phimosis same . meatal ulcer and hypospadius noted . lungs clear cor rrr. abd benign and eating. skin sacral decub covered. neuro : awake and cohesive and talking but baseline dementia evident. not oriented to place or date. tremor intention very evident weakness unchanged 2 person lift and cannot control body position. no signs aspiration. lab na 148/k 5.2 bs 168. assess: 1)hypernatremia improved 2) altered mental status improved. 3) tremor restart inderal. 4) i.v decrease d5 5)patterson dc if he can void. 6) phimosis trying to get foreskin retracted but edema still present. 7) cad stable 8) dehydration resolving. 9) dementia discussed n.h and advanced degre with daughter and . 10) diabetes control with insulin / hold metformin until lactic acid baseline is known . 11) copd very stable boh Plan see above boh
[2019-09-26] MEDS ORDERED: Dextrose 5% in Water 1,000 ML IV SCH ×2 (13:45→21:00)
[2019-09-26] MEDS: Lidocaine 2% Jelly 10 ML Urojet PRN (13:45)
[2019-09-26] MEDS: Propranolol 10 MG Tab PO SCH ×2 (18:54→20:43)
[2019-09-26] MEDS ORDERED: Tamsulosin 0.4 MG Cap.ER PO SCH (21:00)
[2019-09-26] MEDS ORDERED: Sertraline 25 MG Tab PO SCH (21:00)
[2019-09-26] MEDS ORDERED: Bisacodyl 10 MG Supp RECTAL PRN (22:12)
[2019-09-27] MEDS: Lidocaine 2% Jelly 10 ML Urojet PRN (04:20)
--- NOTE | 2019-09-27 08:56 | PCM.PN ---
- General Info Date of Service: 09/27/19 Admission Dx/Problem (Free Text): admitted with hypernatremia /dehydration/ altered mental status/possible uti and urinary obstruction. Functional Status: Reports: Pain Controlled, Tolerating Diet, Ambulating, Urinating. Denies: New Symptoms - Review of Systems General: Reports: No Symptoms. Denies: Fever, Weakness, Fatigue, Malaise, Chills HEENT: Reports: No Symptoms. Denies: Headaches, Sore Throat Pulmonary: Reports: No Symptoms. Denies: Shortness of Breath, Cough, Sputum, Wheezing Cardiovascular: Reports: No Symptoms. Denies: Chest Pain, Palpitations, Dyspnea on Exertion Gastrointestinal: Reports: No Symptoms. Denies: Abdominal Pain, Constipation, Diarrhea, Nausea, Vomiting Genitourinary: Reports: Pain, Retention Musculoskeletal: Reports: No Symptoms Skin: Reports: No Symptoms. Denies: Cyanosis Neurological: Reports: Confusion. Denies: Difficulty Walking, Gait Disturbance Psychiatric: Reports: No Symptoms - Patient Data Vitals - Most Recent: Last Vital Signs Temp 98.4 F 09/27/19 08:08 Pulse 70 09/27/19 08:08 Resp 18 09/27/19 08:08 BP 115/77 09/27/19 08:08 Pulse Ox 97 09/27/19 08:08 Weight - Most Recent: 217 lb 11.2 oz I&O - Last 24 Hours: Intake & Output 09/26/19 09/27/19 09/27/19 22:59 06:59 14:59 Intake Total 1540 840 Output Total 1000 600 Balance 540 240 Lab Results Last 24 Hours: Laboratory Results - last 24 hr 09/26/19 09/26/19 09/27/19 Range/Units 11:14 18:58 05:34 Sodium 146 H (136-145) mEq/L Potassium 4.4 (3.5-5.1) mEq/L Chloride 112 H (98-107) mEq/L Carbon Dioxide 25 (21-32) mEq/L Anion Gap 13.4 (5-15) BUN 17 (7-18) mg/dL Creatinine 0.9 (0.7-1.3) mg/dL Est Cr Clr Drug Dosing 73.05 mL/min Estimated GFR (MDRD) > 60 (>60) mL/min BUN/Creatinine Ratio 18.9 H (14-18) Glucose 275 H (83-115) mg/dL POC Glucose 383 H 287 H (83-110) mg/dL Lactic Acid (0.4-2.0) mmol/L Calcium 8.1 L (8.5-10.1) mg/dL 09/27/19 09/27/19 Range/Units 05:34 06:18 Sodium (136-145) mEq/L Potassium (3.5-5.1) mEq/L Chloride (98-107) mEq/L Carbon Dioxide (21-32) mEq/L Anion Gap (5-15) BUN (7-18) mg/dL Creatinine (0.7-1.3) mg/dL Est Cr Clr Drug Dosing mL/min Estimated GFR (MDRD) (>60) mL/min BUN/Creatinine Ratio (14-18) Glucose (83-115) mg/dL POC Glucose 283 H (83-110) mg/dL Lactic Acid 1.4 (0.4-2.0) mmol/L Calcium (8.5-10.1) mg/dL Artie Results Last 24 Hours: Microbiology 09/23/19 13:17 Aerobic Blood Culture - Preliminary Blood - Venous NO GROWTH AFTER 3 DAYS Anaerobic Blood Culture - Preliminary NO GROWTH AFTER 3 DAYS 09/23/19 13:08 Aerobic Blood Culture - Preliminary Blood - Venous - Lab Draw NO GROWTH AFTER 3 DAYS Anaerobic Blood Culture - Preliminary NO GROWTH AFTER 3 DAYS Med Orders - Current: Current Medications Insulin Glargine (Lantus) 26 unit SUBCUT DAILY [facility] Last Admin: 09/26/19 11:16 Dose: 26 units Lidocaine HCl (Xylocaine 2% Jelly) 10 ml .XX QID PRN PRN Reason: PERICARE Last Admin: 09/27/19 04:20 Dose: 10 ml Magnesium Hydroxide (Milk Of Magnesia) 30 ml PO ONETIME PRN PRN Reason: Constipation Last Admin: 09/26/19 05:57 Dose: 30 ml Memantine (Namenda) 5 mg PO BID [facility] Last Admin: 09/26/19 20:44 Dose: 5 mg Ondansetron HCl (Zofran) 4 mg IV Q6H PRN PRN Reason: Nausea/Vomiting Propranolol HCl (Inderal) 10 mg PO QID [facility] Last Admin: 09/26/19 20:43 Dose: 10 mg Sertraline HCl (Zoloft) 25 mg PO BEDTIME [facility] Last Admin: 09/26/19 20:44 Dose: 25 mg Discontinued Medications Bisacodyl (Dulcolax) 10 mg RECTAL ONETIME PRN PRN Reason: Constipation Dextrose/Water (Dextrose 50% In Water) 100 ml IV ASDIRECTED [facility] Stop: 09/26/19 19:00 Dextrose/Water (Dextrose 5% In Water) 1,000 mls @ 100 mls/hr IV ASDIRECTED [facility] Last Admin: 09/23/19 12:57 Dose: 100 mls/hr Dextrose/Sodium Chloride (Dextrose 5%-1/2 Ns) 1,000 mls @ 150 mls/hr IV ASDIRECTED [facility] Last Admin: 09/24/19 04:34 Dose: 150 mls/hr Dextrose/Sodium Chloride (Dextrose 5%-1/2 Ns) 1,000 mls @ 999 mls/hr IV ASDIRECTED [facility] Stop: 09/23/19 14:01 Last Admin: 09/23/19 13:13 Dose: 999 mls/hr Dextrose/Sodium Chloride (Dextrose 5%-1/2 Ns) Confirm Administered Dose 1,000 mls @ as directed .ROUTE .[facility] Stop: 09/23/19 13:12 Last Admin: 09/23/19 14:40 Dose: Not Given Ceftriaxone Sodium 1 gm/ (Sodium Chloride) 100 mls @ 200 mls/hr IV Q24H [facility] Last Admin: 09/26/19 07:51 Dose: 200 mls/hr Dextrose/Water (Dextrose 5% In Water) 1,000 mls @ 250 mls/hr IV ASDIRECTED [facility] Last Admin: 09/24/19 12:30 Dose: 250 mls/hr Magnesium Sulfate 4 gm/ Premix 50 mls @ 12.5 mls/hr IV ONETIME ONE Stop: 09/24/19 14:29 Last Admin: 09/24/19 10:54 Dose: 12.5 mls/hr Dextrose/Sodium Chloride (Dextrose 5%-1/2 Ns) 1,000 mls @ 125 mls/hr IV ASDIRECTED [facility] Last Admin: 09/24/19 14:44 Dose: 125 mls/hr Potassium Chloride 10 meq/ (Premix) 100 mls @ 100 mls/hr IV Q1H [facility] Stop: 09/24/19 17:29 Last Admin: 09/24/19 17:56 Dose: 100 mls/hr Dextrose/Sodium Chloride (Dextrose 5%-1/2 Ns) 1,000 mls @ 75 mls/hr IV ASDIRECTED [facility] Last Admin: 09/25/19 01:26 Dose: 75 mls/hr Dextrose/Water (Dextrose 5% In Water) 1,000 mls @ 50 mls/hr IV ASDIRECTED [facility] Last Admin: 09/26/19 06:39 Dose: 50 mls/hr Magnesium Sulfate 2 gm/ Premix 50 mls @ 25 mls/hr IV ONETIME ONE Stop: 09/25/19 16:59 Last Admin: 09/25/19 16:13 Dose: 25 mls/hr Magnesium Sulfate 2 gm/ Premix 50 mls @ 25 mls/hr IV ONETIME ONE Stop: 09/26/19 12:50 Last Admin: 09/26/19 11:18 Dose: 25 mls/hr Dextrose/Water (Dextrose 5% In Water) 1,000 mls @ 50 mls/hr IV ASDIRECTED [facility] Stop: 09/26/19 19:00 Dextrose/Water (Dextrose 5% In Water) 1,000 mls @ 50 mls/hr IV ASDIRECTED [facility] Stop: 09/27/19 07:00 Last Admin: 09/26/19 21:08 Dose: 50 mls/hr Insulin Glargine (Lantus) 15 unit SUBCUT ONETIME ONE Stop: 09/24/19 18:31 Last Admin: 09/24/19 18:56 Dose: 15 units Levetiracetam (Keppra) 500 mg PO BID [facility] Last Admin: 09/26/19 11:20 Dose: 500 mg Propranolol HCl (Inderal) 10 mg PO TID [facility] Last Admin: 09/26/19 16:35 Dose: Not Given Tamsulosin HCl (Flomax) 0.4 mg PO BEDTIME [facility] - Exam Quality Assessment: DVT Prophylaxis General: Alert, Cooperative, No Acute Distress HEENT: Pupils Equal, Pupils Reactive, Mucous Membr. Moist/[place] Neck: Supple, Trachea Midline Lungs: Clear to Auscultation, Normal Respiratory Effort Cardiovascular: Regular Rate, Regular Rhythm GI/Abdominal Exam: Normal Bowel Sounds, Soft, Non-Tender, No Distention (Male) Exam: Other (Paraphimosis with suspected hypospadias). No: Circumcised Back Exam: Normal Inspection, Full Range of Motion Extremities: Normal Inspection, Normal Range of Motion, Non-Tender, No Pedal Edema, Normal Capillary Refill Skin: Warm, Dry, Intact Neurological: No New Focal Deficit Psy/Mental Status: Alert Sepsis Event Note - Evaluation Sepsis Screening Result: No Definite Risk - Focused Exam Vital Signs: Vital Signs Temp Pulse Resp BP Pulse Ox 09/27/19 08:08 98.4 F 70 18 115/77 97 09/27/19 06:33 158/70 H 09/27/19 04:26 98.2 F 75 20 178/87 H 100 09/27/19 01:00 97.9 F 71 20 122/95 H 100 Date Exam was Performed: 09/27/19 Time Exam was Performed: 16:15 - Problem List & Annotations (1) Hypospadias SNOMED Code(s): 039980797 Code(s): Q54.9 - HYPOSPADIAS, UNSPECIFIED Status: Chronic Priority: Medium Current Visit: Yes Qualifiers: Hypospadias type: unspecified Qualified Code(s): Q54.9 - Hypospadias, unspecified (2) Paraphimosis SNOMED Code(s): 26705782 Code(s): N47.2 - PARAPHIMOSIS Status: Acute Priority: High Current Visit: Yes (3) Acute on chronic alteration in mental status SNOMED Code(s): 201389454 Code(s): R41.82 - ALTERED MENTAL STATUS, UNSPECIFIED Status: Resolved Priority: High Current Visit: Yes (4) COPD (chronic obstructive pulmonary disease) SNOMED Code(s): 99698908 Code(s): J44.9 - CHRONIC OBSTRUCTIVE PULMONARY DISEASE, UNSPECIFIED Status : Acute Priority: Medium Current Visit: Yes Onset Date: 09/23/19 Qualifiers: COPD type: emphysema Emphysema type: centrilobular Qualified Code(s): J43.2 - Centrilobular emphysema Annotation/Comment:: no pneumonia features seen on exam / covid screen done and negative/ rattly and trouble with oral pharingeal control. 09/26/19 patient unlikely to be able to use ppi and will hold as not having resp issues at all/ (5) Hematuria SNOMED Code(s): 29986098 Code(s): R31.9 - HEMATURIA, UNSPECIFIED Status: Resolved Priority: Medium Current Visit: Yes Qualifiers: Hematuria type: unspecified type Qualified Code(s): R31.9 - Hematuria, unspecified (6) Hyperchloremia SNOMED Code(s): 59422615 Code(s): E87.8 - OTH DISORDERS OF ELECTROLYTE AND FLUID BALANCE, NEC Status : Acute Priority: Medium Current Visit: Yes Onset Date: 09/23/19 Annotation/Comment:: hyperchloremia sec to n.g suction . monitoring and may give free water through n.g. 09/26/19 chloride same and n.g tube out x 24 hours (7) Hyperosmolality with hypernatremia SNOMED Code(s): 862234429 Code(s): E87.0 - HYPEROSMOLALITY AND HYPERNATREMIA Status: Acute Priority : High Current Visit: Yes (8) Hypoalbuminemia SNOMED Code(s): 763125815 Code(s): E88.09 - OT DISORDERS OF PLASMA-PROTEIN METABOLISM, NEC Status: Acute Priority: High Current Visit: Yes (9) Malnutrition SNOMED Code(s): 88639921 Code(s): E46 - UNSPECIFIED PROTEIN-CALORIE MALNUTRITION Status: Acute Priority: High Current Visit: Yes Qualifiers: Malnutrition type: unspecified type Qualified Code(s): E46 - Unspecified protein-calorie malnutrition (10) [facility] resident SNOMED Code(s): 283831229 Code(s): Z59.3 - PROBLEMS RELATED TO LIVING IN RESIDENTIAL INSTITUTION Status: Chronic Priority: Low Current Visit: No (11) Pacemaker SNOMED Code(s): 229904239 Code(s): Z95.0 - PRESENCE OF CARDIAC PACEMAKER Status: Chronic Priority: Low Current Visit: No (12) Stage II decubitus ulcer SNOMED Code(s): 049093963 Code(s): L89.92 - PRESSURE ULCER OF UNSPECIFIED SITE, STAGE 2 Status: Acute Priority: High Current Visit: Yes Qualifiers: Pressure injury location: sacral region Qualified Code(s): L89.152 - Pressure ulcer of sacral region, stage 2 (13) Volume depletion SNOMED Code(s): 889873188 Code(s): E86.9 - VOLUME DEPLETION, UNSPECIFIED Status: Resolved Priority : High Current Visit: Yes (14) Alzheimer disease SNOMED Code(s): 91068536 Code(s): G30.9 - ALZHEIMER'S DISEASE, UNSPECIFIED; F02.80 - DEMENTIA IN OTH DISEASES CLASSD ELSWHR W/O BEHAVRL DISTURB Status: Chronic Priority: Medium Current Visit: Yes Qualifiers: Alzheimer's disease onset: unspecified onset Dementia behavioral disturbance: without behavioral disturbance Qualified Code(s): G30.9 - Alzheimer's disease, unspecified; F02.80 - Dementia in other diseases classified elsewhere without behavioral disturbance (15) Confusion SNOMED Code(s): 246472152 Code(s): R41.0 - DISORIENTATION, UNSPECIFIED Status: Acute Priority: High Current Visit: Yes (16) Diabetes mellitus SNOMED Code(s): 94110815 Code(s): E11.9 - TYPE 2 DIABETES MELLITUS WITHOUT COMPLICATIONS Status: Chronic Priority: Medium Current Visit: No Qualifiers: Diabetes mellitus type: other specified (including SARAH) Diabetes mellitus terminal worker insulin use: with terminal worker use Diabetes mellitus complication status: with other specified complication Qualified Code(s): E13.69 - Other specified diabetes mellitus with other specified complication; Z79.4 - adjunct faculty for medical terminology (current) use of insulin (17) Hypertension SNOMED Code(s): 07140844 Code(s): I10 - ESSENTIAL (PRIMARY) HYPERTENSION Status: Chronic Priority : Medium Current Visit: No Qualifiers: Hypertension type: essential hypertension Qualified Code(s): I10 - Essential (primary) hypertension (18) Hypomagnesemia SNOMED Code(s): 772152672 Code(s): E83.42 - HYPOMAGNESEMIA Status: Resolved Priority: Medium Current Visit: Yes (19) Second degree AV block, Mobitz type II SNOMED Code(s): 32455761 Code(s): I44.1 - ATRIOVENTRICULAR BLOCK, SECOND DEGREE Status: Chronic Priority: Medium Current Visit: No (20) Tremor SNOMED Code(s): 14150348 Code(s): R25.1 - TREMOR, UNSPECIFIED Status: Acute Priority: High Current Visit: Yes - Problem List Review Problem List Initiated/Reviewed/Updated: Yes - Plan Plan:: ASSESSMENT Day of Admission - Diagnosed with Alzheimer's in the past 6 months with recent lengthy admission --> [facility]--> Transferred to [facility] due to requiring higher level of care - Steadily declining mental status with decreased oral intake and decreased responsiveness--> labs as an outpatient with Na in 160s--> transferred to ED - Mental status decline multifactorial from natural disease progression and acute hospital admission associated delirium as well as volume depletion and hypernatremia - Na on admission 159 with water deficit of 6,098mL and obvious volume depletion signs on physical exam - No recent medication changes - VS on admission stable - GFR 37, previous admission GFR normal - Patterson catheter in place since admission to [place], verbally reported by to nursing 2/ urinary retention--> pathologic UA on admission 09/24/19 assess 1)hypernatremia better cont d51/2 ns and decrease rate/ start insulin long acting. 2) recheck lab in am . 3) ng suction for free water admin/ doing better and will dc if not needed in am . 4)paced rhythm. hemodynamically stable 5)copd stable 6) hallucinations better but very confused and clearly seems to have dementia cog eval pending. reversible not known discussed with daughter and seems deteriorating sec to malnutrition and dehydration . 7)renal impairment creatinine improving recheck in am. 8)tremor benign essential type by previous eval but he cannot eat anymore ? if family favors a peg for sustenance . 09/25/19 afebrile/ rattly gurgly resp without apnea or increased rate or work of breathing. sleeping alot / no sedation x 48 hours. na 153 i.v. at 125 cc hour d5 1/2 ns k better low norm. creat stable weight not recorded. sacral decubiti covered and stage 2. no drainage. phimosis/ patterson cath in place / prob. hypospadius noted. skin not ischemic or broke down but increased edema lungs clear cor rrr short syst. m at rusb / abd benign/ positive b.m . neuro not responding to command or name but responds to pain rigidity fairly severe and uniform. tremor with any movements coarse with cogwheeling and intention. facies plus/minus apathetic .. trace edema not eating at all . lab as above. assess 1) hypernatremia still prominant and while not in heart failure will need lasix today or tomorrow. may slow correction. cont i.v decrease to 100/ hour and consider feeding tube placemnt sec to poor overall condition ./low protien and decline. 2)mild fluid overload . 3)decreased sensorium without signs of sepsis. 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 disease. 7) patient will require intensive support for adls / he may be a candidate for descalation or hospice care and snif care. 8) good pacemaker function. 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 d5 1/2 and piggibacked d5w and switched to d 5 w at 50 vss. positive fluid balance 1 liter. good urine output patterson cath in . phimosis same . meatal ulcer and hypospadius noted . lungs clear cor rrr. abd benign and eating. skin sacral decub covered. neuro : awake and cohesive and talking but baseline dementia evident. not oriented to place or date. tremor intention very evident weakness unchanged 2 person lift and cannot control body position. no signs aspiration. lab na 148/k 5.2 bs 168. assess: 1)hypernatremia improved 2) altered mental status improved. 3) tremor restart inderal. 4) i.v decrease d5 5)patterson dc if he can void. 6) phimosis trying to get foreskin retracted but edema still present. 7) cad stable 8) dehydration resolving. 9) dementia discussed n.h and advanced degre with daughter and . 10) diabetes control with insulin / hold metformin until lactic acid baseline is known . 11) copd very stable boh Plan see above 09/27/19 More alert and able to carry on a conversation today Afebrile, VSS Hypernatremia improved, potassium WNL Sacral ulcer covered with mepilex. Last BM today Tremor continues Initial COVID-19 test negative Repeat COVID-19 screen pending Negative blood and urine cultures Patterson catheter remains in place Significant paraphimosis 2/2 edema. Has good circulation to penis glans however shaft of penis appears to have mild pressure necrosis. Magnesium low today and yesterday BS [phone] today/overnight Plan: 1) Continue patterson catheter due to urinary retention 2) Supplement magnesium 3) Dr. Coleman, general surgery consulted for paraphimosis - able to reduce foreskin 4) Urology follow-up after discharge 5) 20mg IVP lasix given today 6) Repeat AM labs 7) Continue insulin regimen - may increase tomorrow if no improvement 8) Repeat COVID-19 screen today 9) From [facility] - CM/SW involved 10) Likely discharge in next 1-2 days
[2019-09-27] MEDS: Propranolol 10 MG Tab PO SCH ×5 (09:15→22:39)
[2019-09-27] MEDS: Insulin Glarg,Human.Rec.Analog 100 Unit/ML SUBCUT SCH (09:16)
[2019-09-27] MEDS: Memantine 10 MG Tab PO SCH ×2 (09:17→22:40)
--- NOTE | 2019-09-27 12:05 | PCM.CONS ---
H&P History of Present Illness - General Date of Service: 09/27/19 Admit Problem/Dx: admitted with hypernatremia /dehydration/ altered mental status/possible uti and urinary obstruction. Source of Information: Provider History Limitations: Reports: Altered Mental Status - History of Present Illness Duration of Symptoms: Reports: Day(s): Other HPI/Comments: Surgery consulted for evaluation of paraphimosis in elderly, demented patient with hypospadias, urinary retention and now penile pain. - Related Data Allergies/Adverse Reactions: Allergies Allergy/AdvReac Type Severity Reaction Status Date / Time No Known Allergies Allergy Verified 09/23/19 16:16 Home Medications: Home Meds Atenolol [Tenormin] 50 mg PO DAILY 07/27/19 [History] atorvaSTATin [Lipitor] 20 mg PO QPM 07/27/19 [History] metFORMIN HCl [Glucophage] 1,000 mg PO BID 07/27/19 [History] Albuterol [Proventil HFA] 2 puff INH Q6HR PRN 09/23/19 [History] Budesonide/Formoterol Fumarate [Budesonide-Formoterol 160-4.5] 2 puff INH BID [History] Insulin Detemir [Levemir Flextouch] 26 units SQ DAILY 09/23/19 [History] Isosorbide Mononitrate [Isosorbide Mononitrate ER] 30 mg PO DAILY 09/23/19 [ History] Memantine [Namenda] 5 mg PO BID 09/23/19 [History] Tamsulosin [Flomax] 0.4 mg PO BEDTIME 09/23/19 [History] levETIRAcetam [Keppra] 500 mg PO BID 09/23/19 [History] Past Medical History HEENT History: Reports: Hard of Hearing, Impaired Vision Cardiovascular History: Reports: Bypass, Hypertension, Pacemaker Other Cardiovascular History: x3 1982 Gastrointestinal History: Reports: GERD Genitourinary History: Reports: Renal Calculus, Retention, Urinary Other Genitourinary History: indwelling patterson catheter Neurological History: Reports: Alzheimers Disease Psychiatric History: Reports: Dementia Endocrine/Metabolic History: Reports: Diabetes, Type II Dermatologic History: Reports: Urticaria - Past Surgical History Cardiovascular Surgical History: Reports: Pacer Other Musculoskeletal Surgeries/Procedures:: back sx for herniated disc Social & Family History - Family History Family Medical History: Noncontributory - Tobacco Use Smoking Status *Q: Unknown Ever Smoked - Caffeine Use Caffeine Use: Reports: Coffee H&P Review of Systems - Review of Systems: Review Of Systems: See Below Genitourinary: Reports: Pain, Other (swelling) Exam - Exam Exam: See Below - Vital Signs Vital Signs: Last Vital Signs Temp 36.9 C 09/27/19 08:08 Pulse 70 09/27/19 09:15 Resp 18 09/27/19 08:08 BP 115/77 09/27/19 09:15 Pulse Ox 97 09/27/19 08:08 Weight: 98.747 kg - Exam General: Alert, Cooperative (Male) Exam: Other (uncircumsized with markedly edematous foreskin. Hypospadias with urinary catheter in place. The glans is mildly edematous with good capillary refill. There is a transition from edematous foreskin to normal skin of the penis, with some minor superficial ulceration on the dorsum of the penis. ) - Patient Data Lab Results Last 24 hrs: Laboratory Results - last 24 hr 09/26/19 09/27/19 09/27/19 Range/Units 18:58 05:34 05:34 Sodium 146 H (136-145) mEq/L Potassium 4.4 (3.5-5.1) mEq/L Chloride 112 H (98-107) mEq/L Carbon Dioxide 25 (21-32) mEq/L Anion Gap 13.4 (5-15) BUN 17 (7-18) mg/dL Creatinine 0.9 (0.7-1.3) mg/dL Est Cr Clr Drug Dosing 73.05 mL/min Estimated GFR (MDRD) > 60 (>60) mL/min BUN/Creatinine Ratio 18.9 H (14-18) Glucose 275 H (83-115) mg/dL POC Glucose 287 H (83-110) mg/dL Lactic Acid 1.4 (0.4-2.0) mmol/L Calcium 8.1 L (8.5-10.1) mg/dL Magnesium (1.8-2.4) mg/dl 09/27/19 09/27/19 Range/Units 05:36 06:18 Sodium (136-145) mEq/L Potassium (3.5-5.1) mEq/L Chloride (98-107) mEq/L Carbon Dioxide (21-32) mEq/L Anion Gap (5-15) BUN (7-18) mg/dL Creatinine (0.7-1.3) mg/dL Est Cr Clr Drug Dosing mL/min Estimated GFR (MDRD) (>60) mL/min BUN/Creatinine Ratio (14-18) Glucose (83-115) mg/dL POC Glucose 283 H (83-110) mg/dL Lactic Acid (0.4-2.0) mmol/L Calcium (8.5-10.1) mg/dL Magnesium 1.6 L (1.8-2.4) mg/dl Result Diagrams: 09/26/19 06:25 09/27/19 05:34 Artie Results Last 24 hrs: Microbiology 09/23/19 13:17 Aerobic Blood Culture - Preliminary Blood - Venous NO GROWTH AFTER 3 DAYS Anaerobic Blood Culture - Preliminary NO GROWTH AFTER 3 DAYS 09/23/19 13:08 Aerobic Blood Culture - Preliminary Blood - Venous - Lab Draw NO GROWTH AFTER 3 DAYS Anaerobic Blood Culture - Preliminary NO GROWTH AFTER 3 DAYS Sepsis Event Note - Evaluation Sepsis Screening Result: No Definite Risk - Focused Exam Vital Signs: Vital Signs Temp Pulse Resp BP Pulse Ox 09/27/19 09:15 70 115/77 09/27/19 08:08 36.9 C 70 18 115/77 97 09/27/19 06:33 158/70 H 09/27/19 04:26 36.8 C 75 20 178/87 H 100 09/27/19 01:00 36.6 C 71 20 122/95 H 100 Date Exam was Performed: 09/27/19 Time Exam was Performed: 11:56 *Q Meaningful Use (ADM) - VTE *Q VTE Mechanical Contraindications *Q: At Risk for Falls Consult PN Assessment/Plan Procedures: Procedures ASSAY OF CALCIUM (07/27/19) ASSAY OF MAGNESIUM (07/27/19) ASSAY OF TROPONIN QUANT (07/27/19) C-REACTIVE PROTEIN (07/27/19) COMPLETE CBC W/AUTO DIFF WBC (07/27/19) COMPREHEN METABOLIC PANEL (07/27/19) CT HEAD/BRAIN W/O DYE (07/27/19) ELECTROCARDIOGRAM TRACING (07/27/19) EMERGENCY DEPT VISIT (07/27/19) GLUCOSE BLOOD TEST (07/27/19) RBC SED RATE AUTOMATED (07/27/19) ROUTINE VENIPUNCTURE (07/27/19) THER/PROPH/DIAG INJ IV PUSH (07/27/19) URINALYSIS AUTO W/SCOPE (07/27/19) X-RAY EXAM CHEST 1 VIEW (07/27/19) Problem List Initiated/Reviewed/Updated: Yes Plan: Edema of the glans was reduced manually, which the patient tolerated well. The foreskin was gently pulled back over the glans as pressure was kept on the glans , though the foreskin was only able to be pulled about nursing home over the glans. There is currently no finding to suggest ischemia. Recommend elevation of the penis to aid in reduction of edema and manual pressure as needed to maintain reduction of paraphimosis. I would have a low threshold to transfer this patient to a center with urologic expertise if there does not appear to be improvement with these measures or if signs of ischemia develop.
[2019-09-27] MEDS ORDERED: Furosemide 20 MG/2 ML VIAL IVPUSH ONE (12:30)
[2019-09-27] MEDS ORDERED: Magnesium Sulfate/Water 4 GM in Premix Bag 1 BAG IV ONE (12:30)
[2019-09-27] MEDS ORDERED: 50% Dextrose in Water 50 ML Syringe PRN (12:37)
[2019-09-27] MEDS ORDERED: Lidocaine 1% 50 ML MDV ONE (15:07)
[2019-09-27] MEDS: Sertraline 25 MG Tab PO SCH (22:41)
--- NOTE | 2019-09-28 07:57 | PCM.PN ---
- General Info Date of Service: 09/28/19 Admission Dx/Problem (Free Text): admitted with hypernatremia /dehydration/ altered mental status/possible uti and urinary obstruction. Functional Status: Reports: Pain Controlled, Tolerating Diet, Ambulating, Urinating. Denies: New Symptoms - Review of Systems General: Reports: Weakness, Fatigue, Malaise. Denies: Fever, Chills HEENT: Reports: No Symptoms. Denies: Headaches, Sore Throat Pulmonary: Reports: No Symptoms. Denies: Shortness of Breath, Cough, Sputum, Wheezing Cardiovascular: Reports: No Symptoms. Denies: Chest Pain, Palpitations, Dyspnea on Exertion Gastrointestinal: Reports: No Symptoms. Denies: Abdominal Pain, Constipation, Diarrhea, Nausea, Vomiting Genitourinary: Reports: No Symptoms. Denies: Pain Musculoskeletal: Reports: No Symptoms Skin: Reports: No Symptoms Neurological: Reports: No Symptoms, Other (Sleeping quite a bit today. ) Psychiatric: Reports: No Symptoms - Patient Data Vitals - Most Recent: Last Vital Signs Temp 97.5 F 09/28/19 03:55 Pulse 63 09/28/19 00:01 Resp 19 09/28/19 03:55 BP 128/75 09/28/19 03:55 Pulse Ox 97 09/28/19 03:55 Weight - Most Recent: 214 lb 8 oz I&O - Last 24 Hours: Intake & Output 09/27/19 09/28/19 09/28/19 22:59 06:59 14:59 Intake Total 320 0 Output Total 1050 450 Balance -730 -450 Lab Results Last 24 Hours: Laboratory Results - last 24 hr 09/27/19 09/27/19 09/27/19 Range/Units 05:36 14:31 18:02 Sodium (136-145) mEq/L Potassium (3.5-5.1) mEq/L Chloride (98-107) mEq/L Carbon Dioxide (21-32) mEq/L Anion Gap (5-15) BUN (7-18) mg/dL Creatinine (0.7-1.3) mg/dL Est Cr Clr Drug Dosing mL/min Estimated GFR (MDRD) (>60) mL/min BUN/Creatinine Ratio (14-18) Glucose (83-115) mg/dL POC Glucose 256 H 241 H (83-110) mg/dL Calcium (8.5-10.1) mg/dL Phosphorus (2.6-4.7) mg/dL Magnesium 1.6 L (1.8-2.4) mg/dl Total Bilirubin (0.2-1.0) mg/dL AST (15-37) U/L ALT (16-63) U/L Alkaline Phosphatase (46-116) U/L Total Protein (6.4-8.2) g/dl Albumin (3.4-5.0) g/dl Globulin gm/dL Albumin/Globulin Ratio (1-2) 09/28/19 09/28/19 Range/Units 05:36 05:36 Sodium 147 H (136-145) mEq/L Potassium 4.1 (3.5-5.1) mEq/L Chloride 110 H (98-107) mEq/L Carbon Dioxide 28 (21-32) mEq/L Anion Gap 13.1 (5-15) BUN 17 (7-18) mg/dL Creatinine 0.9 (0.7-1.3) mg/dL Est Cr Clr Drug Dosing 73.05 mL/min Estimated GFR (MDRD) > 60 (>60) mL/min BUN/Creatinine Ratio 18.9 H (14-18) Glucose 132 H (83-115) mg/dL POC Glucose 128 H (83-110) mg/dL Calcium 8.4 L (8.5-10.1) mg/dL Phosphorus 1.9 L (2.6-4.7) mg/dL Magnesium 1.7 L (1.8-2.4) mg/dl Total Bilirubin 0.5 (0.2-1.0) mg/dL AST 31 (15-37) U/L ALT 52 (16-63) U/L Alkaline Phosphatase 110 (46-116) U/L Total Protein 6.0 L (6.4-8.2) g/dl Albumin 2.3 L (3.4-5.0) g/dl Globulin 3.7 gm/dL Albumin/Globulin Ratio 0.6 L (1-2) Artie Results Last 24 Hours: Microbiology 09/23/19 13:17 Aerobic Blood Culture - Preliminary Blood - Venous NO GROWTH AFTER 4 DAYS Anaerobic Blood Culture - Preliminary NO GROWTH AFTER 4 DAYS 09/23/19 13:08 Aerobic Blood Culture - Preliminary Blood - Venous - Lab Draw NO GROWTH AFTER 4 DAYS Anaerobic Blood Culture - Preliminary NO GROWTH AFTER 4 DAYS Med Orders - Current: Current Medications Magnesium Sulfate 4 gm/ Premix 50 mls @ 12.5 mls/hr IV ONETIME ONE Stop: 09/28/19 11:59 Insulin Glargine (Lantus) 26 unit SUBCUT DAILY [facility] Last Admin: 09/27/19 09:16 Dose: 26 units Lidocaine HCl (Xylocaine 2% Jelly) 10 ml .XX QID PRN PRN Reason: [facility]ICARE Last Admin: 09/27/19 04:20 Dose: 10 ml Memantine (Namenda) 5 mg PO BID [facility] Last Admin: 09/27/19 22:40 Dose: Not Given Ondansetron HCl (Zofran) 4 mg IV Q6H PRN PRN Reason: Nausea/Vomiting Propranolol HCl (Inderal) 10 mg PO QID [facility] Last Admin: 09/27/19 22:39 Dose: Not Given Sertraline HCl (Zoloft) 12.5 mg PO BEDTIME [facility] Last Admin: 09/27/19 22:41 Dose: Not Given Sodium Phosphate (Neutra-Phos) 250 mg PO TID [facility] Stop: 09/28/19 21:01 Discontinued Medications Bisacodyl (Dulcolax) 10 mg RECTAL ONETIME PRN PRN Reason: Constipation Dextrose/Water (Dextrose 50% In Water) 100 ml IV ASDIRECTED [facility] Stop: 09/26/19 19:00 Dextrose/Water (Dextrose 50% In Water) 0 ml .XX ASDIRECTED PRN PRN Reason: Other Last Admin: 09/27/19 12:55 Dose: 50 ml Furosemide (Lasix) 20 mg IVPUSH NOW ONE Stop: 09/27/19 12:31 Last Admin: 09/27/19 12:54 Dose: 20 mg Dextrose/Water (Dextrose 5% In Water) 1,000 mls @ 100 mls/hr IV ASDIRECTED [facility] Last Admin: 09/23/19 12:57 Dose: 100 mls/hr Dextrose/Sodium Chloride (Dextrose 5%-1/2 Ns) 1,000 mls @ 150 mls/hr IV ASDIRECTED [facility] Last Admin: 09/24/19 04:34 Dose: 150 mls/hr Dextrose/Sodium Chloride (Dextrose 5%-1/2 Ns) 1,000 mls @ 999 mls/hr IV ASDIRECTED [facility] Stop: 09/23/19 14:01 Last Admin: 09/23/19 13:13 Dose: 999 mls/hr Dextrose/Sodium Chloride (Dextrose 5%-1/2 Ns) Confirm Administered Dose 1,000 mls @ as directed .ROUTE .STK-MED ONE Stop: 09/23/19 13:12 Last Admin: 09/23/19 14:40 Dose: Not Given Ceftriaxone Sodium 1 gm/ (Sodium Chloride) 100 mls @ 200 mls/hr IV Q24H [facility] Last Admin: 09/26/19 07:51 Dose: 200 mls/hr Dextrose/Water (Dextrose 5% In Water) 1,000 mls @ 250 mls/hr IV ASDIRECTED [facility] Last Admin: 09/24/19 12:30 Dose: 250 mls/hr Magnesium Sulfate 4 gm/ Premix 50 mls @ 12.5 mls/hr IV ONETIME ONE Stop: 09/24/19 14:29 Last Admin: 09/24/19 10:54 Dose: 12.5 mls/hr Dextrose/Sodium Chloride (Dextrose 5%-1/2 Ns) 1,000 mls @ 125 mls/hr IV ASDIRECTED [facility] Last Admin: 09/24/19 14:44 Dose: 125 mls/hr Potassium Chloride 10 meq/ (Premix) 100 mls @ 100 mls/hr IV Q1H [facility] Stop: 09/24/19 17:29 Last Admin: 09/24/19 17:56 Dose: 100 mls/hr Dextrose/Sodium Chloride (Dextrose 5%-1/2 Ns) 1,000 mls @ 75 mls/hr IV ASDIRECTED [facility] Last Admin: 09/25/19 01:26 Dose: 75 mls/hr Dextrose/Water (Dextrose 5% In Water) 1,000 mls @ 50 mls/hr IV ASDIRECTED [facility] Last Admin: 09/26/19 06:39 Dose: 50 mls/hr Magnesium Sulfate 2 gm/ Premix 50 mls @ 25 mls/hr IV ONETIME ONE Stop: 09/25/19 16:59 Last Admin: 09/25/19 16:13 Dose: 25 mls/hr Magnesium Sulfate 2 gm/ Premix 50 mls @ 25 mls/hr IV ONETIME ONE Stop: 09/26/19 12:50 Last Admin: 09/26/19 11:18 Dose: 25 mls/hr Dextrose/Water (Dextrose 5% In Water) 1,000 mls @ 50 mls/hr IV ASDIRECTED [facility] Stop: 09/26/19 19:00 Dextrose/Water (Dextrose 5% In Water) 1,000 mls @ 50 mls/hr IV ASDIRECTED [facility] Stop: 09/27/19 07:00 Last Admin: 09/26/19 21:08 Dose: 50 mls/hr Magnesium Sulfate 4 gm/ Premix 50 mls @ 12.5 mls/hr IV ONETIME ONE Stop: 09/27/19 16:29 Last Admin: 09/27/19 12:54 Dose: 12.5 mls/hr Insulin Glargine (Lantus) 15 unit SUBCUT ONETIME ONE Stop: 09/24/19 18:31 Last Admin: 09/24/19 18:56 Dose: 15 units Levetiracetam (Keppra) 500 mg PO BID [facility] Last Admin: 09/26/19 11:20 Dose: 500 mg Lidocaine HCl (Xylocaine 1%) 0 ml .XX ONETIME ONE Stop: 09/28/19 12:41 Lidocaine HCl (Xylocaine 1%) 1 ml .XX ONETIME ONE Stop: 09/27/19 15:08 Last Admin: 09/27/19 12:55 Dose: 1 ml Magnesium Hydroxide (Milk Of Magnesia) 30 ml PO ONETIME PRN PRN Reason: Constipation Last Admin: 09/26/19 05:57 Dose: 30 ml Propranolol HCl (Inderal) 10 mg PO TID [facility] Last Admin: 09/26/19 16:35 Dose: Not Given Sertraline HCl (Zoloft) 25 mg PO BEDTIME [facility] Last Admin: 09/26/19 20:44 Dose: 25 mg Tamsulosin HCl (Flomax) 0.4 mg PO BEDTIME [facility]ATHY - Exam Quality Assessment: Urine Catheter (chronic ), DVT Prophylaxis General: Alert, Cooperative, No Acute Distress HEENT: Pupils Equal, Pupils Reactive, Mucous Membr. Moist/[place] Neck: Supple, Trachea Midline Lungs: Clear to Auscultation, Normal Respiratory Effort Cardiovascular: Regular Rate, Regular Rhythm GI/Abdominal Exam: Normal Bowel Sounds, Soft, Non-Tender, No Distention (Male) Exam: Deferred Back Exam: Normal Inspection, Full Range of Motion Extremities: Normal Inspection, Normal Range of Motion, Non-Tender, No Pedal Edema, Normal Capillary Refill Skin: Warm, Dry, Intact Neurological: No New Focal Deficit Psy/Mental Status: Alert Sepsis Event Note - Evaluation Sepsis Screening Result: No Definite Risk - Focused Exam Vital Signs: Vital Signs Temp Temp Pulse Resp BP BP Pulse Ox 09/28/19 03:55 97.5 F 19 128/75 97 09/28/19 00:01 97.9 F 63 18 125/77 97 09/27/19 20:37 97.7 F 65 24 H 142/71 H 99 Date Exam was Performed: 09/28/19 Time Exam was Performed: 14:55 - Problem List & Annotations (1) Hypospadias SNOMED Code(s): 219424440 Code(s): Q54.9 - HYPOSPADIAS, UNSPECIFIED Status: Chronic Priority: Medium Current Visit: Yes Qualifiers: Hypospadias type: unspecified Qualified Code(s): Q54.9 - Hypospadias, unspecified (2) Paraphimosis SNOMED Code(s): 02747255 Code(s): N47.2 - PARAPHIMOSIS Status: Acute Priority: High Current Visit: Yes (3) Acute on chronic alteration in mental status SNOMED Code(s): 429535318 Code(s): R41.82 - ALTERED MENTAL STATUS, UNSPECIFIED Status: Resolved Priority: High Current Visit: Yes (4) COPD (chronic obstructive pulmonary disease) SNOMED Code(s): 10703899 Code(s): J44.9 - CHRONIC OBSTRUCTIVE PULMONARY DISEASE, UNSPECIFIED Status : Acute Priority: Medium Current Visit: Yes Onset Date: 09/23/19 Qualifiers: COPD type: emphysema Emphysema type: centrilobular Qualified Code(s): J43.2 - Centrilobular emphysema Annotation/Comment:: no pneumonia features seen on exam / covid screen done and negative/ rattly and trouble with oral pharingeal control. 09/26/19 patient unlikely to be able to use ppi and will hold as not having resp issues at all/ (5) Hematuria SNOMED Code(s): 26405761 Code(s): R31.9 - HEMATURIA, UNSPECIFIED Status: Resolved Priority: Medium Current Visit: Yes Qualifiers: Hematuria type: unspecified type Qualified Code(s): R31.9 - Hematuria, unspecified (6) Hyperchloremia SNOMED Code(s): 60620249 Code(s): E87.8 - OTH DISORDERS OF ELECTROLYTE AND FLUID BALANCE, NEC Status : Acute Priority: Medium Current Visit: Yes Onset Date: 09/23/19 Annotation/Comment:: hyperchloremia sec to n.g suction . monitoring and may give free water through n.g. 09/26/19 chloride same and n.g tube out x 24 hours (7) Hyperosmolality with hypernatremia SNOMED Code(s): 557033202 Code(s): E87.0 - HYPEROSMOLALITY AND HYPERNATREMIA Status: Acute Priority : High Current Visit: Yes (8) Hypoalbuminemia SNOMED Code(s): 125794292 Code(s): E88.09 - OT DISORDERS OF PLASMA-PROTEIN METABOLISM, NEC Status: Acute Priority: High Current Visit: Yes (9) Malnutrition SNOMED Code(s): 73573335 Code(s): E46 - UNSPECIFIED PROTEIN-CALORIE MALNUTRITION Status: Acute Priority: High Current Visit: Yes Qualifiers: Malnutrition type: unspecified type Qualified Code(s): E46 - Unspecified protein-calorie malnutrition (10) [facility] SNOMED Code(s): 990832055 Code(s): Z59.3 - PROBLEMS RELATED TO LIVING IN RESIDENTIAL INSTITUTION Status: Chronic Priority: Low Current Visit: No (11) Pacemaker SNOMED Code(s): 630293180 Code(s): Z95.0 - PRESENCE OF CARDIAC PACEMAKER Status: Chronic Priority: Low Current Visit: No (12) Stage II decubitus ulcer SNOMED Code(s): 717623363 Code(s): L89.92 - PRESSURE ULCER OF UNSPECIFIED SITE, STAGE 2 Status: Acute Priority: High Current Visit: Yes Qualifiers: Pressure injury location: sacral region Qualified Code(s): L89.152 - Pressure ulcer of sacral region, stage 2 (13) Volume depletion SNOMED Code(s): 250429777 Code(s): E86.9 - VOLUME DEPLETION, UNSPECIFIED Status: Resolved Priority : High Current Visit: Yes (14) Alzheimer disease SNOMED Code(s): 20133901 Code(s): G30.9 - ALZHEIMER'S DISEASE, UNSPECIFIED; F02.80 - DEMENTIA IN OTH DISEASES CLASSD ELSWHR W/O BEHAVRL DISTURB Status: Chronic Priority: Medium Current Visit: Yes Qualifiers: Alzheimer's disease onset: unspecified onset Dementia behavioral disturbance: without behavioral disturbance Qualified Code(s): G30.9 - Alzheimer's disease, unspecified; F02.80 - Dementia in other diseases classified elsewhere without behavioral disturbance (15) Confusion SNOMED Code(s): 289622314 Code(s): R41.0 - DISORIENTATION, UNSPECIFIED Status: Acute Priority: High Current Visit: Yes (16) Diabetes mellitus SNOMED Code(s): 29698551 Code(s): E11.9 - TYPE 2 DIABETES MELLITUS WITHOUT COMPLICATIONS Status: Chronic Priority: Medium Current Visit: No Qualifiers: Diabetes mellitus type: other specified (including SARAH) Diabetes mellitus assisted insulin use: with assisted use Diabetes mellitus complication status: with other specified complication Qualified Code(s): E13.69 - Other specified diabetes mellitus with other specified complication; Z79.4 - MCC (current) use of insulin (17) Hypertension SNOMED Code(s): 40036598 Code(s): I10 - ESSENTIAL (PRIMARY) HYPERTENSION Status: Chronic Priority : Medium Current Visit: No Qualifiers: Hypertension type: essential hypertension Qualified Code(s): I10 - Essential (primary) hypertension (18) Hypomagnesemia SNOMED Code(s): 324587164 Code(s): E83.42 - HYPOMAGNESEMIA Status: Resolved Priority: Medium Current Visit: Yes (19) Second degree AV block, Mobitz type II SNOMED Code(s): 91867295 Code(s): I44.1 - ATRIOVENTRICULAR BLOCK, SECOND DEGREE Status: Chronic Priority: Medium Current Visit: No (20) Tremor SNOMED Code(s): 99608809 Code(s): R25.1 - TREMOR, UNSPECIFIED Status: Acute Priority: High Current Visit: Yes - Problem List Review Problem List Initiated/Reviewed/Updated: Yes - My Orders Last 24 Hours: My Active Orders 09/27/19 09:17 Consult to Case Management/[employer] [CONS] Routine 09/27/19 11:55 Consult to Physician [CONS] Routine 09/27/19 11:56 Notify Provider Consults [RC] ASDIRECTED 09/27/19 18:32 CULTURE WOUND [RM] Routine 09/27/19 21:00 Sertraline [Zoloft] 12.5 mg PO BEDTIME 09/28/19 08:00 Magnesium Sulfate/Water [Magnesium Sulfate in Water Premix] 4 gm Premix Bag 1 bag IV ONETIME 09/28/19 09:00 Phosphorus #1 [Neutra-Phos] 250 mg PO TID - Plan Plan:: ASSESSMENT Day of Admission - Diagnosed with Alzheimer's in the past 6 months with recent lengthy admission --> discharged to [facility] where he stayed for 3 weeks--> Transferred to [facility] due to requiring higher level of care - Steadily declining mental status with decreased oral intake and decreased responsiveness--> labs as an outpatient with Na in 160s--> transferred to ED - Mental status decline multifactorial from natural disease progression and acute hospital admission associated delirium as well as volume depletion and hypernatremia - Na on admission 159 with water deficit of 6,098mL and obvious volume depletion signs on physical exam - No recent medication changes - VS on admission stable - GFR 37, previous admission GFR normal - Patterson catheter in place since admission to [place], verbally reported by to nursing 2/2 urinary retention--> pathologic UA on admission 09/24/19 assess 1)hypernatremia better cont d51/2 ns and decrease rate/ start insulin long acting. 2) recheck lab in am . 3) ng suction for free water admin/ doing better and will dc if not needed in am . 4)paced rhythm. hemodynamically stable 5)copd stable 6) hallucinations better but very confused and clearly seems to have dementia cog eval pending. reversible not known discussed with daughter and seems deteriorating sec to malnutrition and dehydration . 7)renal impairment creatinine improving recheck in am. 8)tremor benign essential type by previous eval but he cannot eat anymore ? if family favors a peg for sustenance . 09/25/19 afebrile/ rattly gurgly resp without apnea or increased rate or work of breathing. sleeping alot / no sedation x 48 hours. na 153 i.v. at 125 cc hour d5 1/2 ns k better low norm. creat stable weight not recorded. sacral decubiti covered and stage 2. no drainage. phimosis/ patterson cath in place / prob. hypospadius noted. skin not ischemic or broke down but increased edema lungs clear cor rrr short syst. m at rusb 2/6 abd benign/ positive b.m . neuro not responding to command or name but responds to pain rigidity fairly severe and uniform. tremor with any movements coarse with cogwheeling and intention. facies plus/minus apathetic .. trace edema not eating at all . lab as above. assess 1) hypernatremia still prominant and while not in heart failure will need lasix today or tomorrow. may slow correction. cont i.v decrease to 100/ hour and consider feeding tube placemnt sec to poor overall condition ./low protien and decline. 2)mild fluid overload . 3)decreased sensorium without signs of sepsis. 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 disease. 7) patient will require intensive support for adls / he may be a candidate for descalation or hospice care and snif care. 8) good pacemaker function. 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 d5 1/2 and piggibacked d5w and switched to d 5 w at 50 vss. positive fluid balance 1 liter. good urine output patterson cath in . phimosis same . meatal ulcer and hypospadius noted . lungs clear cor rrr. abd benign and eating. skin sacral decub covered. neuro : awake and cohesive and talking but baseline dementia evident. not oriented to place or date. tremor intention very evident weakness unchanged 2 person lift and cannot control body position. no signs aspiration. lab na 148/k 5.2 bs 168. assess: 1)hypernatremia improved 2) altered mental status improved. 3) tremor restart inderal. 4) i.v decrease d5 5)patterson dc if he can void. 6) phimosis trying to get foreskin retracted but edema still present. 7) cad stable 8) dehydration resolving. 9) dementia discussed n.h and advanced degre with daughter and . 10) diabetes control with insulin / hold metformin until lactic acid baseline is known . 11) copd very stable boh Plan see above 09/27/19 More alert and able to carry on a conversation today Afebrile, VSS Hypernatremia improved, potassium WNL Sacral ulcer covered with mepilex. Last BM today Tremor continues Initial COVID-19 test negative Repeat COVID-19 screen pending Negative blood and urine cultures Patterson catheter remains in place Significant paraphimosis 2/2 edema. Has good circulation to penis glans however shaft of penis appears to have mild pressure necrosis. Magnesium low today and yesterday BS [phone] today/overnight Plan: 1) Continue patterson catheter due to urinary retention 2) Supplement magnesium 3) Dr. Coleman, general surgery consulted for paraphimosis - able to reduce foreskin 4) Urology follow-up after discharge 5) 20mg IVP lasix given today 6) Repeat AM labs 7) Continue insulin regimen - may increase tomorrow if no improvement 8) Repeat COVID-19 screen today 9) From [facility]/ involved 10) Likely discharge in next 1-2 days 09/28/19 Sleepy today but does wake up at times Afebrile, VSS Magnesium improved but still low Hypernatremia stable Sacral ulcer covered with mepilex Last BM Today. BS stable overnight Urine and blood cultures remain negative Patterson remains in place Wound culture obtained from drainage around penis - suspect contaminants No signs of active infection Plan: 1) Continue patterson catheter due to urinary retention 3) Supplement magnesium again 3) Urology follow-up after discharge 4) Repeat AM labs 5) Continue insulin regimen - may increase tomorrow if no improvement 6) Repeat COVID-19 screen pending 7) Pureed diet with thickened liquids 8) Continue WATCH COMMANDER/PT/OT 9) From [facility]/ involved 10) Likely discharge tomorrow pending negative COVID
[2019-09-28] MEDS ORDERED: Magnesium Sulfate/Water 4 GM in Premix Bag 1 BAG IV ONE (08:00)
[2019-09-28] MEDS: Phosphorus #1 250 MG Tab PO SCH ×3 (09:36→21:30)
[2019-09-28] MEDS: Propranolol 10 MG Tab PO SCH ×4 (09:36→21:30)
[2019-09-28] MEDS: Memantine 10 MG Tab PO SCH ×2 (09:37→21:29)
[2019-09-28] MEDS: Insulin Glarg,Human.Rec.Analog 100 Unit/ML SUBCUT SCH (09:38)
[2019-09-28] MEDS ORDERED: Lidocaine 1% 50 ML MDV ONE (12:40)
[2019-09-28] MEDS: Sertraline 25 MG Tab PO SCH (21:30)
[2019-09-29] MEDS: Propranolol 10 MG Tab PO SCH (08:38)
[2019-09-29] MEDS: Memantine 10 MG Tab PO SCH (08:39)
[2019-09-29] MEDS: Insulin Glarg,Human.Rec.Analog 100 Unit/ML SUBCUT SCH (08:47)
[2019-09-29] MEDS ORDERED: Magnesium Sulfate/Water 4 GM in Premix Bag 1 BAG IV ONE (10:40)
[2019-09-29] MEDS ORDERED: Magnesium Oxide 400 MG Tab PO ONE (11:27)
--- NOTE | 2019-09-29 11:34 | PCM.DCSUM1 ---
Discharge Summary - Hospital Course HPI Initial Comments: Information obtained by chart review and verbal reports by staff due to altered mental status. 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 He was there for about a month. Discharged to [facility] about 3.5 weeks ago and transferred to [facility] a couple of days ago. Nursing reports patient's states he has been having altered mental status since discharge from [facility] with worsening decreased responsiveness, associated with minimal oral intake. Labs scheduled for today and found to have Na in 160s for which he was transferred here. Diagnosis: Stroke: No - Discharge Data Discharge Date: 09/29/19 (Admit date: 09/23/19) Discharge Disposition: DC/Tfer to SNF 03 Condition: Stable - Referral to Home Health Primary Care Physician: Stanislaw Maldonado MD - Discharge Diagnosis/Problem(s) (1) Hypospadias SNOMED Code(s): 610933596 ICD Code: Q54.9 - HYPOSPADIAS, UNSPECIFIED Status: Chronic Priority: Medium Qualifiers: Hypospadias type: unspecified Qualified Code(s): Q54.9 - Hypospadias, unspecified (2) Paraphimosis SNOMED Code(s): 76878941 ICD Code: N47.2 - PARAPHIMOSIS Status: Acute Priority: High (3) Acute on chronic alteration in mental status SNOMED Code(s): 774700496 ICD Code: R41.82 - ALTERED MENTAL STATUS, UNSPECIFIED Status: Resolved Priority: High (4) COPD (chronic obstructive pulmonary disease) SNOMED Code(s): 36194329 ICD Code: J44.9 - CHRONIC OBSTRUCTIVE PULMONARY DISEASE, UNSPECIFIED Status : Acute Priority: Medium Onset Date: 09/23/19 Problem Details: no pneumonia features seen on exam / covid screen done and negative/ rattly and trouble with oral pharingeal control. 09/26/19 patient unlikely to be able to use ppi and will hold as not having resp issues at all/ Qualifiers: COPD type: emphysema Emphysema type: centrilobular Qualified Code(s): J43.2 - Centrilobular emphysema (5) Hematuria SNOMED Code(s): 96511034 ICD Code: R31.9 - HEMATURIA, UNSPECIFIED Status: Resolved Priority: Medium Qualifiers: Hematuria type: unspecified type Qualified Code(s): R31.9 - Hematuria, unspecified (6) Hyperchloremia SNOMED Code(s): 05798068 ICD Code: E87.8 - OTH DISORDERS OF ELECTROLYTE AND FLUID BALANCE, NEC Status: Acute Priority: Medium Onset Date: 09/23/19 Problem Details: hyperchloremia sec to n.g suction . monitoring and may give free water through n.g. 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 SNOMED Code(s): 042644602 ICD Code: Z59.3 - PROBLEMS RELATED TO LIVING IN RESIDENTIAL INSTITUTION Status: Chronic Priority: Low (11) Pacemaker SNOMED Code(s): 131548727 ICD Code: Z95.0 - PRESENCE OF CARDIAC PACEMAKER Status: Chronic Priority : Low (12) Stage II decubitus ulcer SNOMED Code(s): 198578210 ICD Code: L89.92 - PRESSURE ULCER OF UNSPECIFIED SITE, STAGE 2 Status: Acute Priority: High Qualifiers: Pressure injury location: sacral region Qualified Code(s): L89.152 - Pressure ulcer of sacral region, stage 2 (13) Volume depletion SNOMED Code(s): 658113829 ICD Code: E86.9 - VOLUME DEPLETION, UNSPECIFIED Status: Resolved Priority : High (14) Alzheimer disease SNOMED Code(s): 67196462 ICD Code: G30.9 - ALZHEIMER'S DISEASE, UNSPECIFIED; F02.80 - DEMENTIA IN OTH DISEASES CLASSD ELSWHR W/O BEHAVRL DISTURB Status: Chronic Priority: Medium Qualifiers: Alzheimer's disease onset: unspecified onset Dementia behavioral disturbance: without behavioral disturbance Qualified Code(s): G30.9 - Alzheimer's disease, unspecified; F02.80 - Dementia in other diseases classified elsewhere without behavioral disturbance (15) Confusion SNOMED Code(s): 885852923 ICD Code: R41.0 - DISORIENTATION, UNSPECIFIED Status: Acute Priority: High (16) Diabetes mellitus SNOMED Code(s): 16043770 ICD Code: E11.9 - TYPE 2 DIABETES MELLITUS WITHOUT COMPLICATIONS Status: Chronic Priority: Medium Qualifiers: Diabetes mellitus type: other specified (including SARAH) Diabetes mellitus exterminator helper insulin use: with exterminator helper use Diabetes mellitus complication status: with other specified complication Qualified Code(s): E13.69 - Other specified diabetes mellitus with other specified complication; Z79.4 - exterminator helper (current) use of insulin (17) Hypertension SNOMED Code(s): 99806335 ICD Code: I10 - ESSENTIAL (PRIMARY) HYPERTENSION Status: Chronic Priority : Medium Qualifiers: Hypertension type: essential hypertension Qualified Code(s): I10 - Essential (primary) hypertension (18) Hypomagnesemia SNOMED Code(s): 517858035 ICD Code: E83.42 - HYPOMAGNESEMIA Status: Resolved Priority: Medium (19) Second degree AV block, Mobitz type II SNOMED Code(s): 31713709 ICD Code: I44.1 - ATRIOVENTRICULAR BLOCK, SECOND DEGREE Status: Chronic Priority: Medium (20) Tremor SNOMED Code(s): 63201379 ICD Code: R25.1 - TREMOR, UNSPECIFIED Status: Acute Priority: High - Patient Summary/Data Consults: Consultations 09/24/19 10:20 Consult to Speech Language Pathology [COMMERCIAL LINES UNDERWRITER Evaluation and Treatment] [CONS] Routine 09/26/19 13:44 OT Evaluation and Treatment [CONS] Routine PT Evaluation and Treatment [CONS] Routine 09/27/19 09:17 Consult to Case Management/[place] [CONS] Routine 09/27/19 11:55 Consult to Physician [CONS] Routine Labs Pending at D/C: Serum Beta-2 microglobulin Recommended Follow-up Testing/Procedures: Follow-up with PCP within 5-7 days of discharge. Follow-up with urology as directed regarding paraphimosis Hospital Course: Gustavo was admitted to the floor for hypernatremia. This was corrected using IV fluids. While here he was noted to have some difficulty with eating so a speech -language pathology consult was placed. She did recommend he start a pured diet with nectar thick liquids. She also recommended his pills be crushed and put with pudding. He does have a history of chronic urinary retention and a Patterson catheter was in place. He was noted to have some significant swelling of the foreskin around his penis and paraphimosis. General surgery consult was placed for assistance with this as patient was noted to have pain and an area of mild pressure necrosis. This was able to be reduced. No signs of any ischemia to the glans. After reduction there was a small area of fluid that was cultured. This is thought to be contamination as he has no signs of an active infection. UA in the ED was contaminated and repeat UA on the floor was negative. He will be discharged with his chronic Patterson. Recommend he undergo urology follow-up regarding his paraphimosis and also chronic Patterson. His magnesium was low and was supplemented multiple days. He will be discharged on 5 days of p.o. magnesium. Recommend he follow-up with his primary care provider within 7 days of discharge. Recommend rechecking CMP and magnesium at that time. He did work with PT/OT and they recommended SNF placement. He was discharged back to [facility] today. - Patient Instructions Diet: Pureed Diet, Other: [place]-thick liquids. Crush meds and give with pudding Activity: As Tolerated Driving: Do Not Drive Showering/Bathing: May Shower Notify Provider of: Fever, Increased Pain, Nausea and/or Vomiting Other/Special Instructions: Follow-up with PCP within 5-7 days of dishcarge. Follow-up with urology regarding indwelling patterson catheter and paraphimosis. Monitor penis for signs of swelling and paraphimosis. Prop penis upright to assist with edema as needed. PT/OT/COMMERCIAL LINES UNDERWRITER to continue at SNF. Take weight daily and record it in a journal. Bring this with to all medical appointments. Continue home medications as directed. Take all new medicatoins as ordered. Should symptoms return or worsen, contact primary care provider or return to the Emergency Department. - Discharge Plan *PRESCRIPTION DRUG MONITORING PROGRAM REVIEWED*: No *COPY OF PRESCRIPTION DRUG MONITORING REPORT IN PATIENT BEVERLY: No Prescriptions/Med Rec: Magnesium Oxide [Magnesium] 400 mg PO DAILY #5 tablet Propranolol [Inderal] 10 mg PO QID #48 tablet Sertraline [Zoloft] 12.5 mg PO BEDTIME #10 tablet Home Medications: Home Meds Atenolol [Tenormin] 50 mg PO DAILY 07/27/19 [History] atorvaSTATin [Lipitor] 20 mg PO QPM 07/27/19 [History] metFORMIN HCl [Glucophage] 1,000 mg PO BID 07/27/19 [History] Albuterol [Proventil HFA] 2 puff INH Q6HR PRN 09/23/19 [History] Budesonide/Formoterol Fumarate [Budesonide-Formoterol 160-4.5] 2 puff INH BID [History] Insulin Detemir [Levemir Flextouch] 26 units SQ DAILY 09/23/19 [History] Memantine [Namenda] 5 mg PO BID 09/23/19 [History] Propranolol [Inderal] 10 mg PO QID #48 tablet 09/28/19 [Rx] Sertraline [Zoloft] 12.5 mg PO BEDTIME #10 tablet 09/28/19 [Rx] Magnesium Oxide [Magnesium] 400 mg PO DAILY #5 tablet 09/29/19 [Rx] Oxygen Therapy Mode: Room Air Patient Handouts: Hypernatremia, Indwelling Urinary Catheter Care, Adult, Easy- to-Read, Heart Failure Forms: ED Department Discharge Referrals: Stanislaw Maldonado MD [Primary Care Provider] - 10/06/19 7:30 am (please attend the scheduled follow up appointment with your primary care provider as listed.) - Discharge Summary/Plan Comment DC Time >30 min.: Yes (45 mins ) - General Info Date of Service: 09/29/19 Admission Dx/Problem (Free Text: admitted with hypernatremia /dehydration/ altered mental status/possible uti and urinary obstruction. Functional Status: Reports: Pain Controlled, Tolerating Diet, Urinating. Denies : New Symptoms - Review of Systems General: Reports: Weakness. Denies: Fever, Fatigue, Malaise, Chills HEENT: Reports: No Symptoms. Denies: Headaches, Sore Throat Pulmonary: Reports: No Symptoms. Denies: Shortness of Breath, Pleuritic Chest Pain, Cough, Sputum, Wheezing Cardiovascular: Reports: No Symptoms. Denies: Chest Pain, Palpitations, Dyspnea on Exertion Gastrointestinal: Reports: No Symptoms. Denies: Abdominal Pain, Constipation, Diarrhea, Nausea, Vomiting Genitourinary: Reports: No Symptoms. Denies: Pain Musculoskeletal: Reports: No Symptoms Skin: Reports: No Symptoms. Denies: Cyanosis Neurological: Reports: Confusion, Tremors, Difficulty Walking, Weakness, Gait Disturbance Psychiatric: Reports: No Symptoms - Patient Data Vitals - Most Recent: Last Vital Signs Temp 97.5 F 09/29/19 08:10 Pulse 69 09/29/19 08:38 Resp 16 09/29/19 08:10 BP 140/95 H 09/29/19 08:38 Pulse Ox 100 09/29/19 08:10 Weight - Most Recent: 214 lb 4.8 oz I&O - Last 24 hours: Intake & Output 09/28/19 09/29/19 09/29/19 22:59 06:59 14:59 Intake Total 230 200 Output Total 550 175 Balance -320 25 Lab Results - Last 24 hrs: Laboratory Results - last 24 hr 09/28/19 09/28/19 09/29/19 Range/Units 11:30 16:49 06:40 WBC (4.23-9.07) K/mm3 RBC (4.63-6.08) M/mm3 Hgb (13.7-17.5) gm/dl Hct (40.1-51.0) % MCV (79.0-92.2) fl MCH (25.7-32.2) pg MCHC (32.2-35.5) g/dl RDW Std Deviation (35.1-43.9) fL Plt Count (163-337) K/mm3 MPV (9.4-12.3) fl Neut % (Auto) (34.0-67.9) % Lymph % (Auto) (21.8-53.1) % [place] % (Auto) (5.3-12.2) % Eos % (Auto) (0.8-7.0) Baso % (Auto) (0.1-1.2) % Neut # (Auto) (1.78-5.38) K/mm3 Lymph # (Auto) (1.32-3.57) K/mm3 [place] # (Auto) (0.30-0.82) K/mm3 Eos # (Auto) (0.04-0.54) K/mm3 Baso # (Auto) (0.01-0.08) K/mm3 Sodium (136-145) mEq/L Potassium (3.5-5.1) mEq/L Chloride (98-107) mEq/L Carbon Dioxide (21-32) mEq/L Anion Gap (5-15) BUN (7-18) mg/dL Creatinine (0.7-1.3) mg/dL Est Cr Clr Drug Dosing mL/min Estimated GFR (MDRD) (>60) mL/min BUN/Creatinine Ratio (14-18) Glucose (83-115) mg/dL POC Glucose 273 H 254 H 132 H (83-110) mg/dL Calcium (8.5-10.1) mg/dL Phosphorus (2.6-4.7) mg/dL Magnesium (1.8-2.4) mg/dl 09/29/19 09/29/19 09/29/19 Range/Units 08:45 09:37 09:37 WBC 7.76 (4.23-9.07) K/mm3 RBC 4.53 L (4.63-6.08) M/mm3 Hgb 13.5 L (13.7-17.5) gm/dl Hct 41.6 (40.1-51.0) % MCV 91.8 (79.0-92.2) fl MCH 29.8 (25.7-32.2) pg MCHC 32.5 (32.2-35.5) g/dl RDW Std Deviation 43.0 (35.1-43.9) fL Plt Count 206 D (163-337) K/mm3 MPV 10.8 (9.4-12.3) fl Neut % (Auto) 70.7 H (34.0-67.9) % Lymph % (Auto) 17.0 L (21.8-53.1) % [place] % (Auto) 5.8 (5.3-12.2) % Eos % (Auto) 5.8 (0.8-7.0) Baso % (Auto) 0.4 (0.1-1.2) % Neut # (Auto) 5.49 H (1.78-5.38) K/mm3 Lymph # (Auto) 1.32 (1.32-3.57) K/mm3 [place] # (Auto) 0.45 (0.30-0.82) K/mm3 Eos # (Auto) 0.45 (0.04-0.54) K/mm3 Baso # (Auto) 0.03 (0.01-0.08) K/mm3 Sodium 144 (136-145) mEq/L Potassium 3.7 (3.5-5.1) mEq/L Chloride 107 (98-107) mEq/L Carbon Dioxide 28 (21-32) mEq/L Anion Gap 12.7 (5-15) BUN 19 H (7-18) mg/dL Creatinine 1.0 (0.7-1.3) mg/dL Est Cr Clr Drug Dosing 65.74 mL/min Estimated GFR (MDRD) > 60 (>60) mL/min BUN/Creatinine Ratio 19.0 H (14-18) Glucose 261 H (83-115) mg/dL POC Glucose 121 H (83-110) mg/dL Calcium 8.5 (8.5-10.1) mg/dL Phosphorus 2.3 L (2.6-4.7) mg/dL Magnesium 1.6 L (1.8-2.4) mg/dl 09/29/19 Range/Units 10:54 WBC (4.23-9.07) K/mm3 RBC (4.63-6.08) M/mm3 Hgb (13.7-17.5) gm/dl Hct (40.1-51.0) % MCV (79.0-92.2) fl MCH (25.7-32.2) pg MCHC (32.2-35.5) g/dl RDW Std Deviation (35.1-43.9) fL Plt Count (163-337) K/mm3 MPV (9.4-12.3) fl Neut % (Auto) (34.0-67.9) % Lymph % (Auto) (21.8-53.1) % [place] % (Auto) (5.3-12.2) % Eos % (Auto) (0.8-7.0) Baso % (Auto) (0.1-1.2) % Neut # (Auto) (1.78-5.38) K/mm3 Lymph # (Auto) (1.32-3.57) K/mm3 [place] # (Auto) (0.30-0.82) K/mm3 Eos # (Auto) (0.04-0.54) K/mm3 Baso # (Auto) (0.01-0.08) K/mm3 Sodium (136-145) mEq/L Potassium (3.5-5.1) mEq/L Chloride (98-107) mEq/L Carbon Dioxide (21-32) mEq/L Anion Gap (5-15) BUN (7-18) mg/dL Creatinine (0.7-1.3) mg/dL Est Cr Clr Drug Dosing mL/min Estimated GFR (MDRD) (>60) mL/min BUN/Creatinine Ratio (14-18) Glucose (83-115) mg/dL POC Glucose 258 H (83-110) mg/dL Calcium (8.5-10.1) mg/dL Phosphorus (2.6-4.7) mg/dL Magnesium (1.8-2.4) mg/dl VIDAL Results - Last 24 hrs: Microbiology 09/27/19 18:32 Wound Culture - Preliminary Urethra Pseudomonas Aeruginosa 09/27/19 09:59 Coronavirus RNA (PCR) - Final Nares, Unspecified 09/23/19 13:17 Aerobic Blood Culture - Preliminary Blood - Venous NO GROWTH AFTER 5 DAYS Anaerobic Blood Culture - Preliminary NO GROWTH AFTER 5 DAYS 09/23/19 13:08 Aerobic Blood Culture - Preliminary Blood - Venous - Lab Draw NO GROWTH AFTER 5 DAYS Anaerobic Blood Culture - Preliminary NO GROWTH AFTER 5 DAYS Med Orders - Current: Current Medications Insulin Glargine (Lantus) 26 unit SUBCUT DAILY [facility] Last Admin: 09/29/19 08:47 Dose: 26 units Lidocaine HCl (Xylocaine 2% Jelly) 10 ml .XX QID PRN PRN Reason: PERICARE Last Admin: 09/27/19 04:20 Dose: 10 ml Memantine (Namenda) 5 mg PO BID [facility] Last Admin: 09/29/19 08:39 Dose: 5 mg Ondansetron HCl (Zofran) 4 mg IV Q6H PRN PRN Reason: Nausea/Vomiting Propranolol HCl (Inderal) 10 mg PO QID [facility] Last Admin: 09/29/19 08:38 Dose: 10 mg Sertraline HCl (Zoloft) 12.5 mg PO BEDTIME [facility] Last Admin: 09/28/19 21:30 Dose: 12.5 mg Discontinued Medications Bisacodyl (Dulcolax) 10 mg RECTAL ONETIME PRN PRN Reason: Constipation Dextrose/Water (Dextrose 50% In Water) 100 ml IV ASDIRECTED [facility] Stop: 09/26/19 19:00 Dextrose/Water (Dextrose 50% In Water) 0 ml .XX ASDIRECTED PRN PRN Reason: Other Last Admin: 09/27/19 12:55 Dose: 50 ml Furosemide (Lasix) 20 mg IVPUSH NOW ONE Stop: 09/27/19 12:31 Last Admin: 09/27/19 12:54 Dose: 20 mg Dextrose/Water (Dextrose 5% In Water) 1,000 mls @ 100 mls/hr IV ASDIRECTED [facility] Last Admin: 09/23/19 12:57 Dose: 100 mls/hr Dextrose/Sodium Chloride (Dextrose 5%-1/2 Ns) 1,000 mls @ 150 mls/hr IV ASDIRECTED [facility] Last Admin: 09/24/19 04:34 Dose: 150 mls/hr Dextrose/Sodium Chloride (Dextrose 5%-1/2 Ns) 1,000 mls @ 999 mls/hr IV ASDIRECTED [facility] Stop: 09/23/19 14:01 Last Admin: 09/23/19 13:13 Dose: 999 mls/hr Dextrose/Sodium Chloride (Dextrose 5%-1/2 Ns) Confirm Administered Dose 1,000 mls @ as directed .ROUTE .STK-MED ONE Stop: 09/23/19 13:12 Last Admin: 09/23/19 14:40 Dose: Not Given Ceftriaxone Sodium 1 gm/ (Sodium Chloride) 100 mls @ 200 mls/hr IV Q24H [facility] Last Admin: 09/26/19 07:51 Dose: 200 mls/hr Dextrose/Water (Dextrose 5% In Water) 1,000 mls @ 250 mls/hr IV ASDIRECTED [facility] Last Admin: 09/24/19 12:30 Dose: 250 mls/hr Magnesium Sulfate 4 gm/ Premix 50 mls @ 12.5 mls/hr IV ONETIME ONE Stop: 09/24/19 14:29 Last Admin: 09/24/19 10:54 Dose: 12.5 mls/hr Dextrose/Sodium Chloride (Dextrose 5%-1/2 Ns) 1,000 mls @ 125 mls/hr IV ASDIRECTED [facility] Last Admin: 09/24/19 14:44 Dose: 125 mls/hr Potassium Chloride 10 meq/ (Premix) 100 mls @ 100 mls/hr IV Q1H [facility] Stop: 09/24/19 17:29 Last Admin: 09/24/19 17:56 Dose: 100 mls/hr Dextrose/Sodium Chloride (Dextrose 5%-1/2 Ns) 1,000 mls @ 75 mls/hr IV ASDIRECTED [facility] Last Admin: 09/25/19 01:26 Dose: 75 mls/hr Dextrose/Water (Dextrose 5% In Water) 1,000 [facility] Admin: 09/26/19 06:39 Dose: 50 mls/hr Magnesium Sulfate 2 gm/ Premix 50 mls @ 25 mls/hr IV ONETIME ONE Stop: 09/25/19 16:59 Last Admin: 09/25/19 16:13 Dose: 25 mls/hr Magnesium Sulfate 2 gm/ Premix 50 mls @ 25 mls/hr IV ONETIME ONE Stop: 09/26/19 12:50 Last Admin: 09/26/19 11:18 Dose: 25 mls/hr Dextrose/Water (Dextrose 5% In Water) 1,000 mls [facility]: 09/26/19 19:00 Dextrose/Water (Dextrose 5% In Water) 1,000 mls @ [facility] Stop: 09/27/19 07:00 Last Admin: 09/26/19 21:08 Dose: 50 mls/hr Magnesium Sulfate 4 gm/ Premix 50 mls @ 12.5 mls/hr IV ONETIME ONE Stop: 09/27/19 16:29 Last Admin: 09/27/19 12:54 Dose: 12.5 mls/hr Magnesium Sulfate 4 gm/ Premix 50 mls @ 12.5 mls/hr IV ONETIME ONE Stop: 09/28/19 11:59 Last Admin: 09/28/19 09:38 Dose: 12.5 mls/hr Magnesium Sulfate 4 gm/ Premix 50 mls @ 12.5 mls/hr IV ONETIME ONE Stop: 09/29/19 14:39 Insulin Glargine (Lantus) 15 unit SUBCUT ONETIME ONE Stop: 09/24/19 18:31 Last Admin: 09/24/19 18:56 Dose: 15 units Levetiracetam (Keppra) 500 mg PO BID [facility] Last Admin: 09/26/19 11:20 Dose: 500 mg Lidocaine HCl (Xylocaine 1%) 0 ml .XX ONETIME ONE Stop: 09/28/19 12:41 Lidocaine HCl (Xylocaine 1%) 1 ml .XX ONETIME ONE Stop: 09/27/19 15:08 Last Admin: 09/27/19 12:55 Dose: 1 ml Magnesium Hydroxide (Milk Of Magnesia) 30 ml PO ONETIME PRN PRN Reason: Constipation Last Admin: 09/26/19 05:57 Dose: 30 ml Magnesium Oxide (Magnesium Oxide) 400 mg PO ONETIME ONE Stop: 09/29/19 11:28 Propranolol HCl (Inderal) 10 mg PO TID [facility] Last Admin: 09/26/19 16:35 Dose: Not Given Sertraline HCl (Zoloft) 25 mg PO BEDTIME [facility] Last Admin: 09/26/19 20:44 Dose: 25 mg Sodium Phosphate (Neutra-Phos) 250 mg PO TID [facility] Stop: 09/28/19 21:01 Last Admin: 09/28/19 21:30 Dose: 250 mg Tamsulosin HCl (Flomax) 0.4 mg PO BEDTIME KATHY - Exam Quality Assessment: Reports: Urine Catheter (chronic ), DVT Prophylaxis General: Reports: Alert, Cooperative, No Acute Distress HEENT: Reports: Pupils Equal, Pupils Reactive, Mucous Membr. Moist/[place] Neck: Reports: Supple, Trachea Midline Lungs: Reports: Clear to Auscultation, Normal Respiratory Effort Cardiovascular: Reports: Regular Rate, Regular Rhythm, Other (Pacemaker) GI/Abdominal Exam: Normal Bowel Sounds, Soft, Non-Tender, No Distention, No Abnormal Bruit (Male) Exam: Deferred Rectal (Males) Exam: Deferred Back Exam: Reports: Normal Inspection, Full Range of Motion Extremities: Normal Inspection, Normal Range of Motion, Non-Tender, No Pedal Edema, Normal Capillary Refill Skin: Reports: Warm, Dry, Intact Neurological: Reports: No New Focal Deficit Psy/Mental Status: Reports: Alert *Q Meaningful Use (DIS) - VTE *Q VTE Mechanical Contraindications *Q: At Risk for Falls
== END 2019-09-29 12:45 | DRG 683 ==
LOC: JD.ED 10:06 → SUPCPDRO 10:06 → JD.MS 12:42
PROVIDERS: ADMIT Internal Medicine; ATTEND Internal Medicine
DX: N17.9 Acute kidney failure, unspecified (principal); E86.0 Dehydration; N39.0 Urinary tract infection, site not specified; H91.90 Unspecified hearing loss, unspecified ear; E87.0 Hyperosmolality and hypernatremia; Z95.1 Presence of aortocoronary bypass graft; E46 Unspecified protein-calorie malnutrition; I10 Essential (primary) hypertension; N47.2 Paraphimosis; J43.2 Centrilobular emphysema; R31.9 Hematuria, unspecified; E11.9 Type 2 diabetes mellitus without complications; E87.8 Other disorders of electrolyte and fluid balance, not elsewhere classified; E88.09 Other disorders of plasma-protein metabolism, not elsewhere classified; L89.152 Pressure ulcer of sacral region, stage 2; R33.9 Retention of urine, unspecified; N18.4 Chronic kidney disease, stage 4 (severe); E86.9 Volume depletion, unspecified; G30.9 Alzheimer's disease, unspecified; F02.80 Dementia in other diseases classified elsewhere, unspecified severity, without behavioral disturbance, psychotic disturbance, mood disturbance, and anxiety; E83.42 Hypomagnesemia; E11.22 Type 2 diabetes mellitus with diabetic chronic kidney disease; I44.1 Atrioventricular block, second degree; H54.7 Unspecified visual loss; K21.9 Gastro-esophageal reflux disease without esophagitis; Z66 Do not resuscitate; I12.9 Hypertensive chronic kidney disease with stage 1 through stage 4 chronic kidney disease, or unspecified chronic kidney disease; Z96.0 Presence of urogenital implants; Z87.442 Personal history of urinary calculi; Q54.9 Hypospadias, unspecified; Z79.4 Long term (current) use of insulin; Z79.899 Other long term (current) drug therapy; Z95.0 Presence of cardiac pacemaker; Z68.29 Body mass index [BMI] 29.0-29.9, adult; Z20.828 Contact with and (suspected) exposure to other viral communicable diseases
CPT/HCPCS: 36415; 36600; 51702; 70450; 70450-26; 71045; 71045-26; 80048; 80053; 81001; 82232; 82550; 82803; 82962; 83605; 83735; 83880; 83930; 83935; 84100; 84300; 85025; 87040; 87070; 87077; 87086; 87186; 87641; 92526-GN; 92610-GN; 93005; 97110-GO; 97110-GP; 97162-GP; 97167-GO; 97530-GO; 97530-GP; 97535-GO; 99222; 99232; 99239; 99285; 99285-25; A9270-GY; J0696; J1815-GY; J2001; J3475; J3480; J7042; J7050; J7060; U0002